=== PATIENT | female | born 1965 | race Caucasian/White ===

== ENCOUNTER → 2016-10-14 | Outpatient (CLI) | payer OTHER ==
[~2016-10-14] MED LIST: LISI-725 PO; PARO1TAB27 PO; PRM625 PO
--- NOTE | 2016-10-14 17:52 | DIAGNOSTIC IMAGING REPORT ---
BRAIN WITHOUT CONTRAST HISTORY: Headaches R51 Cervicogenic [id number] Acute intractable headache TECHNIQUE: Multiplanar multisequence MRI of the brain was performed without the use of contrast. COMPARISON STUDY: 08/24/2015 FINDINGS: There are no areas of restricted diffusion to suggest acute infarction. The midline structures are intact. The paranasal sinuses are clear. The mastoid air cells are clear. The ventricles and sulci are within normal limits for age. There is no mass, hematoma, midline shift. The major vascular flow-voids at the skull base are well maintained. Several very small foci of increased signal right cerebral hemisphere unchanged in the prior exam. No new or interval finding. IMPRESSION: Chronic change. No acute process. No change from the prior exam. The above report was generated using voice recognition software. It may contain grammatical, syntax or spelling errors. Electronically signed by: Sy Berger M.D. 10/14/2016 5:51 PM Dictated Date/Time: 10/14/2016 5:49 PM
== END | disposition home or self-care (01) ==
LOC: C.MRI 16:51
PROVIDERS: ATTEND Psychiatry & Neurology Neurology
DX: R51 Headache (principal)

== ENCOUNTER → 2017-01-10 | Outpatient (CLI) | payer OTHER ==
[~2017-01-10] VITALS: Ht 163.8 cm; Wt 61.0 kg
[2017-01-10 16:10] VITALS: BP 158/80; PULSE 61; Ht 163.8 cm; Wt 61.0 kg
== END | disposition home or self-care (01) ==
LOC: C.NEUR 14:50
PROVIDERS: ATTEND Internal Medicine Pulmonary Disease
DX: R06.83 Snoring (principal); R06.2 Wheezing; R53.83 Other fatigue; R51 Headache; E66.9 Obesity, unspecified

== ENCOUNTER → 2017-01-24 | Outpatient (CLI) | payer OTHER ==
--- NOTE | 2017-01-25 06:09 | PAP/PSG TECHNICIAN REPORT ---
[facility] Application Project Leader Polysomnogram Report Study name: None Report date: 01/25/2017 Study date: 01/24/2017 Referring Physician: Gaurav Diaz M.D. Name: QUIRINO FULLER Interpreting Physician: Gaurav Diaz M.D. Date of : 1965 Application Project Leader: Carmita Pyle RPS. Sex: Female Age: 51 StudyType: PSG Weight: 267 lbs Height: 51 years, Height 5' 4" Neck Circum: 15 inches BMI: 45.83 Medications: Calcium 600 +D, Diclofenac Sodium 50 mg, Lisinopril 30 mg, Lorazepam 0.5 mg, Methocarbamol 500 mg, Oxycodone-Acetaminophen 5-325 mg, Pantoprazole Sodium 40mg, Paroxetine 20 mg, Premarin 0.625 mg, Prochlorperazine Maleate 10 mg, Propranolol 80 mg, Rizatriptan Patient History 51 yr. old female here for a diagnostic sleep study. Patient complains of severe fatigue, snoring, headaches and fragmented sleep. Patients [place] Sleepiness 12/24. Parameters Monitored NPSG: E1-M2, E2-M1, Fp1-M2, Fp2-M1, F3-M2, F4-M2, F4-M1, C3-M2, C4-M2, C4-M1, O1-M2, O2-M2, O2-M1, T3-M2, T4-M1, P3-M2, P4-M1, CHIN1, CHIN2, HR, EKG, Legs, PFLOW, SNOR, FLOW, CFLOW, Tidal Volume, THOR, ABDO, SpO2, PLTH, CPRESS, ETCO2 Wave, ETCO2, pH Sleep Architecture Sleep Stages Time at Lights Off 9:17:14 PM STAGES Time (min.) TST (%) Time at Lights On 5:26:14 AM Wake 30.0 -- Total Recording Time (TRT) 489.50 min. N1 27.5 6 Total Sleep Period (TSP) 479.0 min. N2 320.0 70 Total Sleep Time (TST) 459.0min. N3 32.5 7 Awake Time 30.0 min. REM 79.0 17 Wake after Sleep Onset 20.0 min. Sleep Efficiency (SE) 94 % Sleep Onset Latency (DARLIN) 10.0 min. Number of Stage 1 Shifts None Awakenings 19 Stage Changes 92 Number of REM periods 5 REM 79.0 17 REM Latency 284.0 min. NREM 380.0 83 Body Position Analysis Supine Right Left Side Prone Vertical Total Sleep Time (min.) 298.2 61.2 111.5 172.73 0.0 4.3 Total Sleep Time (%) 62% 13% 24% 38 0% N/A% Total Sleep Time REM (min.) 78.5 0.0 0.5 None 0.0 0.0 Total Sleep Time NREM (min.) 207.8 61.2 111.0 None 0.0 0.0 Intermittent Wake (min.) 11.9 2.2 11.5 None 0.0 4.3 Total Sleep Period (%) 62% None None None None None Arousals Myoclonus (PLM) * Events Count Index Events Count Index Spontaneous 13 2 Events Awake (PLMW) 33 66.0 Respiratory 10 1.4 Events Asleep w/ Arousal (PLMA) 10 1.3 PLM 10 1 Events Asleep w/o Arousal (PLMS) 81 10.6 Snoring 17 2 Total Asleep 91 11.9 Total 50 7 Total 124 15 Respiratory Analysis * CA OA MA CH H RERA Total Count 25 19 0 0 238 0 282 Index 3.3 2.5 0.0 0 31.1 0 36.9 Mean Duration 16.1 13.1 0.0 0.00 18.9 0.0 18.3 Longest Duration 23.2 17.6 0.0 0.00 0.0 0.0 91.0 Respiratory Event Summary Total Supine ~Supine Right Left Prone REM NREM Apneas Count 44 33 11 1 10 N/A 9 35 Index 5.8 7 4 1.0 5.4 N/A 7 6 Hypopneas (4% Desat) Count 238 175 63 9 54 N/A 85 153 Index 31.1 36.7 22 8.8 29.0 N/A 64.6 24.2 Apneas & All Hypopneas Count 282 208 74 10 64 N/A 94 188 Index 36.9 44 26 10 34 N/A 71.4 29.7 Respiratory Events (Commercial Lending Vice President+All Hyp+RERA) Count 282 208 74 10 64 N/A 94 188 Index 36.9 44 26 9.8 34.4 N/A 71.4 29.7 Respiratory Related Arousal Count 10 208 4 0 4 N/A 0 11 Index 1.4 1 1 0 2 N/A 0 2 Snoring Analysis Supine Right Left Prone REM NREM Total Snore duration 54.6 min Snores count 1,761 453 421 N/A 415 2,220 2,635 Snore mean duration 1.2 Sec Snores index 369 444 226 N/A 315.2 350.5 344.4 TST with snoring (%) 11.9% Desaturation Event Summary: Minimum %SpO2 Event Count Mean/Min/Max Duration(sec.) Desaturation Index % Time In Bed > 90 329 15.9 / 5.8 / 52.8 66.3 61.0 86 - 90 60 14.0 / 4.0 / 52.8 19.6 37.6 81 - 85 0 N/A 0.0 1.4 76 - 80 0 N/A 0.0 0.0 71 - 75 0 N/A 0.0 0.0 66 - 70 0 N/A 0.0 0.0 61 - 65 0 N/A 0.0 0.0 56 - 60 0 N/A 0.0 0.0 51 - 55 0 N/A 0.0 0.0 < 50 0 N/A 0.0 0.0 Total REM NREM Awake <50% 0.0 min. 0.0 min. 0.0 min. 0.0 min. 51 - 60% 0.0 min. 0.0 min. 0.0 min. 0.0 min. 61 - 70% 0.0 min. 0.0 min. 0.0 min. 0.0 min. 71 - 80% 0.1 min. 0.1 min. 0.0 min. 0.0 min. 81 - 90% 190.3 min. 41.0 min. 145.6 min. 3.7 min. 91 - 100% 297.9 min. 37.9 min. 234.3 min. 25.7 min. Average 91 90 91 93 Minimum SpO2 80 80 84 86 Desaturation Event Index 42.3 85.8 33.6 40.0 # Desat. Events below 89% 204 86 116 2 Time(%) with Saturation below 89% 8.0 4.4 3.5 0.1 Time(min.) with Saturation below 89% 39.1 21.3 17.0 0.7 Time (mins) REM (mins) NREM (mins) % of TST SpO2 Below 90% 318 111 N207 19.2 SpO2 Below 88% 51 0 0 4 Heart Rate Analysis Min (bpm) Max (bpm) Average (bpm) Awake 53 90 66 NREM 48 95 64 REM 47 87 64 Overall 47 95 64 Supplemental O2 Values Minimum O2 level: None Value Start Time End Time Application Project Leader Comments MS. Fuller slept in the right, left, and supine positions. No cardiac arrhythmia or PLMs noted. No bruxism noted. Snoring was noted and scored as a 4 on a scale of 0 through 5. (0=no snoring, 5=snoring loud enough to be heard through a closed door or down the allan way) MS. Fuller did not wake to use the restroom during the night. MS. Fuller stated, that was a normal night for me. The final report will be interpreted and signed by a sleep physician. The completed physician report will then be placed in the patient medical record. Therapy (cm H2O) 0 TIB (min.) 489.0 TST (min.) 459.0 Sleep Onset (min.) 10.0 REM Onset From Sleep (min.) 284.0 Sleep Efficiency % 94 Wakefulness (%) 6 Wakefulness (min.) 30.0 NREM 1 (%) 6 NREM 1 (min.) 27.5 NREM 2 (%) 70 NREM 2 (min.) 320.0 NREM 3 (%) 7 NREM 3 (min.) 32.5 REM (%) 17 REM (min.) 79.0 # Arousals 50 Arousal Index 7 # Snore 2,635 Snore Index 344.4 AHI 36.9 AHI Supine 44 AHI Non-Supine 26 NREM AHI 29.7 REM AHI 71.4 RDI 36.9 # Obstructive Apnea 19 # Central Apnea 25 # Mixed Apnea 0 # Hypopneas 238 RERAs 0 Total Respiratory Events 290 Time Below SpO2 89% (min.) 38.3 Mean NREM SpO2 (%) 91 Mean REM SpO2 (%) 90 Mean Sleep SpO2 (%) 91 Min NREM SpO2 (%) 84 Min REM SpO2 (%) 80 Position Supine (min.) 298.2 Position Non-supine (min.) 172.7 LM Index Sleep 11.9 LM Index NREM 14.4 LM Index REM 0.0 Mean Heart Rate (bpm) 64 Min Heart Rate (bpm) 47
--- NOTE | 2017-01-26 19:44 | POLYSOMNOGRAPH REPORT ---
CLINICAL DATA: A 51-year-old female with BMI of 45.8, referred by myself and Dr. Bishop with complaints of severe fatigue, snoring, headaches, and fragmented sleep architecture. Her [place] sleepiness score is 12/24. SLEEP ARCHITECTURE: Total sleep period was 479 minutes. Total sleep time was 459 minutes divided between 380 minutes of non-REM sleep and 79 minutes of REM sleep. Sleep onset latency was 10 minutes. REM latency was 284 minutes. Sleep efficiency was 94%. Wake after sleep onset was 20 minutes. Sleep consisted of stage N1 6%, stage N2 70%, stage N3 7%, and non-REM 17%. AROUSAL DATA: Fifty arousals were recorded for an index of 7 per hour. PERIODIC LIMB MOVEMENT DATA: Ninety one limb movements during sleep were noted for an index of 11.9 per hour with arousal index of 1.3 per hour. RESPIRATORY DATA: Severe sleep apnea was documented. The AHI was 37. There were 25 central and 19 obstructive apneic episodes. The longest duration of apnea was 23.2 seconds. There were 238 hypopneic episodes with the mean duration of 18.9 seconds. OXIMETRY DATA: Nocturnal hypoxemia was seen. Oxygen meliza was 80% during REM. The mean saturation was 91%. Time below 88% was 51 minutes. ECHOCARDIOGRAM: Heart rates ranged from 48-95 beats per minute. No arrhythmias were noted. STAFF FORESTER'S COMMENTS: The patient slept in the right, left, and supine positions. Snoring was severe, rated 4 on a scale of 1-5. IMPRESSION: Severe obstructive sleep apnea/hypopnea with nocturnal hypoxemia with an apnea/hypopnea index of 37 and an oxygen meliza of 80%. RECOMMENDATIONS: The patient would benefit from a repeat sleep study with CPAP or use of auto CPAP. [place]
== END | disposition home or self-care (01) ==
LOC: C.NEUR 21:00
PROVIDERS: ATTEND Internal Medicine Pulmonary Disease
DX: G47.33 Obstructive sleep apnea (adult) (pediatric) (principal); R53.83 Other fatigue; R51 Headache; E66.9 Obesity, unspecified; R06.83 Snoring; R06.2 Wheezing; R09.02 Hypoxemia

== ENCOUNTER → 2017-03-07 | Outpatient (CLI) | payer OTHER ==
[~2017-03-07] VITALS: Ht 160 cm; Wt 119.5 kg
[2017-03-07 15:56] VITALS: BP 136/94; PULSE 51; Ht 160 cm; Wt 119.5 kg
== END | disposition home or self-care (01) ==
LOC: C.NEUR 15:07
PROVIDERS: ATTEND Physician Assistant Medical
DX: G47.30 Sleep apnea, unspecified (principal); G47.34 Idiopathic sleep related nonobstructive alveolar hypoventilation; E66.9 Obesity, unspecified; R53.83 Other fatigue; R06.83 Snoring; I10 Essential (primary) hypertension; J45.909 Unspecified asthma, uncomplicated

== ENCOUNTER → 2017-03-19 | Outpatient (CLI) | payer OTHER ==
--- NOTE | 2017-03-20 05:59 | PAP/PSG TECHNICIAN REPORT ---
[facility] Equipment Engineer Polysomnogram Report Study name: None Report date: 03/20/2017 Study date: 03/19/2017 Referring Physician: Gaurav Diaz M.D. Name: QUIRINO ROLAND Interpreting Physician: Gaurav Diaz M.D. Date of : 1965 Equipment Engineer: Indy Meier RPS. Sex: Female Age: 51 Study Type: PSG PAP Weight: 267 lbs 15 in Height: 51 years, Height 5' 4" Neck Circum: BMI: 45.83 Medications: Calcium 600 +D, Diclofenac Sodium 50 mg, Lisinopril 30 mg, Lorazepam 0.5 mg, Methocarbamol 500 mg, Oxycodone-Acetaminophen 5-325 mg, Pantoprazole Sodium 40mg, Paroxetine 20 mg, Premarin 0.625 mg, Prochlorperazine Maleate 10 mg, Propranolol 80 mg, Rizatriptan Patient History 51 yr-old female here for a new CPAP treatment study. She was found to be positive for ANDRAE with an AHI of 36. She chose a Quattro Air full face mask size small from [employer]. The test was started on room air and 4 CMH2O. ETCO2 testing was not utilized during this study. Room 1 She forgot to mention during her first sleep study, that she wakes up a lot due to consistent knee pain. Parameters Monitored NPSG: E1-M2, E2-M1, Fp1-M2, Fp2-M1, F3-M2, F4-M2, F4-M1, C3-M2, C4-M2, C4-M1, O1-M2, O2-M2, O2-M1, T3-M2, T4-M1, P3-M2, P4-M1, CHIN1, CHIN2, HR, EKG, Legs, PFLOW, SNOR, FLOW, CFLOW, Tidal Volume, THOR, ABDO, SpO2, PLTH, CPRESS, ETCO2 Wave, ETCO2, pH Sleep Architecture Sleep Stages Time at Lights Off 10:02:20 PM STAGES Time (min.) TST (%) Time at Lights On 5:33:50 AM Wake 17.0 -- Total Recording Time (TRT) 451.50 min. N1 67.0 15 Total Sleep Period (TSP) 448.0 min. N2 248.0 57 Total Sleep Time (TST) 434.5min. N3 47.5 11 Awake Time 17.0 min. REM 72.0 17 Wake after Sleep Onset 13.5 min. Sleep Efficiency (SE) 96 % Sleep Onset Latency (DARLIN) 3.5 min. Number of Stage 1 Shifts None Awakenings 13 Stage Changes 98 Number of REM periods 2 REM 72.0 17 REM Latency 216.5 min. NREM 362.5 83 Body Position Analysis Supine Right Left Side Prone Vertical Total Sleep Time (min.) 249.8 164.4 28.5 192.91 0.0 0.0 Total Sleep Time (%) 56% 38% 7% 44 0% N/A% Total Sleep Time REM (min.) 18.5 53.5 0.0 None 0.0 0.0 Total Sleep Time NREM (min.) 223.1 110.9 28.5 None 0.0 0.0 Intermittent Wake (min.) 8.3 5.5 3.2 None 0.0 0.0 Total Sleep Period (%) 56% None None None None None Arousals Myoclonus (PLM) * Events Count Index Events Count Index Spontaneous 34 5 Events Awake (PLMW) 22 77.6 Respiratory 21 3.0 Events Asleep w/ Arousal (PLMA) 5 0.7 PLM 5 1 Events Asleep w/o Arousal (PLMS) 117 16.2 Snoring 11 2 Total Asleep 122 16.8 Total 71 10 Total 144 19 Respiratory Analysis * CA OA MA CH H RERA Total Count 19 3 1 0 33 11 56 Index 2.6 0.4 0.1 0 4.6 2 9.3 Mean Duration 12.4 15.6 13.6 0.00 15.9 18.4 15.3 Longest Duration 17.1 20.5 13.6 0.00 13.6 22.5 24.3 Respiratory Event Summary Total Supine ~Supine Right Left Prone REM NREM Apneas Count 23 16 7 5 2 N/A 5 18 Index 3.2 4 2 1.8 4.2 N/A 4 3 Hypopneas (4% Desat) Count 33 30 3 1 2 N/A 0 33 Index 4.6 7.5 1 0.4 4.2 N/A 0.0 5.5 Apneas & All Hypopneas Count 56 46 10 6 4 N/A 5 51 Index 7.7 11 3 2 8 N/A 4.2 8.4 Respiratory Events (Marine Animal Trainer+All Hyp+RERA) Count 56 54 13 9 4 N/A 5 51 Index 9.3 13 4 3.3 8.4 N/A 4.2 10.3 Respiratory Related Arousal Count 21 54 4 4 0 N/A 0 22 Index 3.0 4 1 1 0 N/A 0 4 Snoring Analysis Supine Right Left Prone REM NREM Total Snore duration 10.7 min Snores count 374 160 4 N/A 4 534 538 Snore mean duration 1.2 Sec Snores index 93 58 8 N/A 3.3 88.4 74.3 TST with snoring (%) 2.5% Desaturation Event Summary: Minimum %SpO2 Event Count Mean/Min/Max Duration(sec.) Desaturation Index % Time In Bed > 90 92 18.3 / 5.0 / 59.8 16.4 75.1 86 - 90 9 14.4 / 5.0 / 24.5 4.9 24.8 81 - 85 1 5.8 / 5.8 / 5.8 100.0 0.1 76 - 80 0 N/A 0.0 0.0 71 - 75 0 N/A 0.0 0.0 66 - 70 0 N/A 0.0 0.0 61 - 65 0 N/A 0.0 0.0 56 - 60 0 N/A 0.0 0.0 51 - 55 0 N/A 0.0 0.0 < 50 0 N/A 0.0 0.0 Total REM NREM Awake <50% 0.0 min. 0.0 min. 0.0 min. 0.0 min. 51 - 60% 0.0 min. 0.0 min. 0.0 min. 0.0 min. 61 - 70% 0.0 min. 0.0 min. 0.0 min. 0.0 min. 71 - 80% 0.0 min. 0.0 min. 0.0 min. 0.0 min. 81 - 90% 111.9 min. 6.4 min. 104.6 min. 0.9 min. 91 - 100% 336.8 min. 65.6 min. 257.3 min. 13.9 min. Average 92 92 92 93 Minimum SpO2 84 87 84 85 Desaturation Event Index 12.6 0.8 14.6 28.2 # Desat. Events below 89% 31 1 27 3 Time(%) with Saturation below 89% 1.9 0.0 1.8 0.1 Time(min.) with Saturation below 89% 8.6 0.2 8.1 0.4 Time (mins) REM (mins) NREM (mins) % of TST SpO2 Below 90% 68 1 N67 5.6 SpO2 Below 88% 8 0 0 0 Heart Rate Analysis Min (bpm) Max (bpm) Average (bpm) Awake 47 80 59 NREM 45 79 54 REM 50 74 64 Overall 45 79 55 Supplemental O2 Values Minimum O2 level: None Value Start Time End Time Equipment Engineer Comments Ms. Roland slept in the right, left, and supine positions. No cardiac arrhythmias. Some PLMs were noted. No bruxism noted. CPAP was initiated at +4 CMH2O and up-titrated to a level of +12 CMH2O, Cflex 3. A Quattro Air full face mask size small from [employer] was used during titration She did not wake up to use the restroom during the night. Ms. Roland stated that she slept well. The final report will be interpreted and signed by a sleep physician. The completed physician report will then be placed in the patient medical record. Therapy Event: Therapy (cm H20) 4 5 7 8 9 11 12 Total Time at Pressure (min.) 25.0 73.3 51.0 41.2 119.1 63.6 78.3 TST at Pressure (min.) 21.5 70.8 50.5 40.7 115.6 57.1 78.3 # Periods 1 1 1 1 1 1 1 Sleep Onset (min.) 3.5 0.0 0.0 0.0 0.0 0.0 0.0 REM Onset (min.) N/A N/A N/A N/A 29.5 N/A 59.8 Sleep Efficiency % 86 96 99 98 97 89 100 Wakefulness (%) 14.0 3.4 1.0 1.2 2.9 10.2 0.0 Wakefulness (min.) 3.5 2.5 0.5 0.5 3.5 6.5 0.0 NREM 1 (%) 32.0 6.1 11.8 3.6 12.2 43.2 6.4 NREM 1 (min.) 8.0 4.5 6.0 1.5 14.5 27.5 5.0 NREM 2 (%) 54.0 25.7 87.2 95.1 40.0 46.5 70.0 NREM 2 (min.) 13.5 18.8 44.5 39.2 47.6 29.6 54.8 NREM 3 (%) 0.0 64.8 0.0 0.0 0.0 0.0 0.0 NREM 3 (min.) 0.0 47.5 0.0 0.0 0.0 0.0 0.0 REM (%) 0.0 0.0 0.0 0.0 44.9 0.0 23.6 REM (min.) 0.0 0.0 0.0 0.0 53.5 0.0 18.5 # Arousals 5 4 8 11 20 14 9 Arousal Index 13.9 3.4 9.5 16.2 10.4 14.7 6.9 # Snore 71 81 23 81 158 51 73 Snore Index 197.9 68.6 27.3 119.5 82.0 53.6 55.9 AHI 0.0 5.1 13.1 3.0 8.8 13.7 5.4 AHI Supine N/A 84.9 13.1 3.0 19.2 18.9 5.4 AHI Non-Supine 0.0 1.8 N/A N/A 3.2 8.4 N/A NREM AHI 0.0 5.1 13.1 3.0 14.5 13.7 4.0 REM AHI N/A N/A N/A N/A 2.2 N/A 9.7 RDI 2.8 6.8 13.1 8.9 9.9 14.7 6.1 # Obstructive 0 1 1 1 0 0 0 # Central Ap 0 1 2 0 6 5 5 # Mixed 0 0 1 0 0 0 0 # Hypopneas 0 4 7 1 11 8 2 RERAS 1 2 0 4 2 1 1 Total Respiratory Events 1 8 11 6 19 14 8 Time Below SpO2 89.00% (min.) 0.1 0.8 1.4 0.6 1.2 0.0 4.1 Mean NREM SpO2 (%) 91 91 91 91 92 94 92 Mean REM SpO2 (%) N/A N/A N/A N/A 92 N/A 91 Mean Sleep SpO2 (%) 91 91 91 91 92 94 92 Min NREM SpO2 (%) 88 85 84 86 84 89 88 Min REM SpO2 (%) N/A N/A N/A N/A 87 N/A 89 Position Supine (min.) 0.0 2.8 50.5 40.7 40.7 28.6 78.3 Position Non-supine (min.) 21.5 68.0 0.0 0.0 74.9 28.5 0.0 LM Index Sleep 94.8 11.9 11.9 5.9 15.6 14.7 12.3 LM Index NREM 94.8 11.9 11.9 5.9 9.7 14.7 8.0 LM Index REM N/A N/A N/A N/A 22.4 N/A 25.9 Mean Heart Rate (bpm) 58 58 55 54 57 49 55 Min Heart Rate (bpm) 53 48 48 49 46 45 45 CPAP REPORT Therapy Detail Time / Page # Comment CPAP 4 cm H2O Full Face Mask Flex Pressure Relief Humidifier on 10:00:20 PM / pg. 88 CPAP 5 cm H2O Full Face Mask Flex Pressure Relief Humidifier on 10:27:21 PM / pg. 142 INCREASED FOR AUDIBLE SNORING CPAP 7 cm H2O Full Face Mask Flex Pressure Relief Humidifier on 11:40:40 PM / pg. 288 INCREASED FOR HYPOPNEAS CPAP 8 cm H2O Full Face Mask Flex Pressure Relief Humidifier on 12:31:37 AM / pg. 390 INCREASED FOR RERAS AND HYPOPNEAS CPAP 9 cm H2O Full Face Mask Flex Pressure Relief Humidifier on 1:12:48 AM / pg. 472 INCREASED FOR SNORING AND HYPOPNEAS CPAP 11 cm H2O Full Face Mask Flex Pressure Relief Humidifier on 3:11:56 AM / pg. 711 INCREASED FOR MORE RERAS AND HYPOPNEAS CPAP 12 cm H2O Full Face Mask Flex Pressure Relief Humidifier on 4:15:31 AM / pg. 838 INCREASED FOR MORE RERAS AND HYPOPNEAS
--- NOTE | 2017-03-20 17:07 | POLYSOMNOGRAPH REPORT ---
CLINICAL DATA: A 51-year-old female with BMI of 45.83, referred by myself and Dr. Bishop for CPAP titration study. She had a baseline sleep study which showed with an AHI of 36. She used a Quattro Air facemask full size small from [employer]. SLEEP ARCHITECTURE: Total sleep period was 448 minutes. Total sleep time was 434.5 minutes divided between 362.5 minutes of non-REM sleep and 72 minutes of REM sleep. Sleep latency was 3.5 minutes. REM latency was 216.5 minutes. Sleep efficiency was 96%. Wake after sleep onset was 13.5 minutes. Sleep consisted of stage N1 15%, stage N2 57%, stage N3 11%, and REM 17%. AROUSAL DATA: Seventy one arousals recorded for an index of 10 per hour. PERIODIC LIMB MOVEMENT DATA: Mildly elevated limb movements during sleep were noted. There were 122 limb movements during sleep noted for an index of 16.8 per hour with arousal index of 0.7 per hour. RESPIRATORY DATA: The AHI was 7.7. There were 19 central, 3 obstructive, and 1 mixed apneic episodes. The longest apneic episode was 20.5 seconds. There were 33 hypopneic episodes. The longest duration of hypopnea was 13.6 seconds. OXIMETRY DATA: Nocturnal hypoxemia was seen. Oxygen meliza was 84% during non-REM sleep. Mean saturation was 92%. Time below 88% was 8 minutes. ECHOCARDIOGRAM: Heart rates ranged from 45-79 beats per minute. No arrhythmias were noted. BATHING SUIT MAKER'S COMMENTS AND TREATMENT SUMMARY: The patient slept in the right, left, and supine positions. CPAP was titrated up to 12 cm of water pressure, C-Flex setting #3. At the final pressure setting, she slept for 78 minutes with an AHI of 5. IMPRESSION: Severe obstructive sleep apnea corrected with CPAP at 12 cm water pressure, C-Flex setting of 3, using a Quattro Air full facemask size small from [employer]. RECOMMENDATIONS: The patient should be started on the above noted treatment regimen and seen back in followup within 90 days to document efficacy and compliance. [facility]
== END | disposition home or self-care (01) ==
LOC: C.NEUR 21:00
PROVIDERS: ATTEND Physician Assistant Medical
DX: G47.34 Idiopathic sleep related nonobstructive alveolar hypoventilation (principal); E66.9 Obesity, unspecified; G47.30 Sleep apnea, unspecified

== ENCOUNTER 2022-09-03 22:34 | Inpatient (IN) ==
[2022-09-03] MEDS ORDERED: methylPREDNISolone 125 MG/2 ML VIAL IV STA (22:47)
[2022-09-03] MEDS ORDERED: ALBUT/IPRATROP 3MG/0.5MG NEB 3 ML VIAL INH STA (22:47)
--- NOTE | 2022-09-03 22:58 | Emergency Department Note ---
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 Patient denies fever, chills, abdominal pain, flulike illness, tick bites. She tried her inhaler with no relief of symptoms. No history of blood clots. No leg pain or swelling. No recent travel. She does not smoke. No history of heart failure. Home Medications Medication Instructions Recorded Confirmed Type mometasone-formoterol HFA 100 2 puffs inhalation BID Shortness 01/08/19 09/03/22 Rx mcg-5 mcg/actuation aerosol inhaler Of Breath Or Wheezing #13 grams albuterol sulfate 90 mcg/actuation 2 puffs inhalation Q4H PRN 06/14/19 09/03/22 Rx aerosol inhaler Shortness Of Breath Or Wheezing #6.7 grams hydrochlorothiazide 25 mg tablet 25 mg PO DAILY 03/12/21 09/03/22 History lisinopril 40 mg tablet 40 mg PO QAM #90 tabs 10/18/21 09/03/22 Rx pantoprazole 40 mg tablet,delayed 40 mg PO QAM #90 tabs 10/18/21 09/03/22 Rx release propranolol 80 mg capsule,24 80 mg PO QAM #90 caps 10/18/21 09/03/22 Rx hr,extended release conjugated estrogens 0.625 mg 0.625 mg PO QAM #90 tabs 01/14/22 09/03/22 Rx tablet (Premarin) paroxetine HCl 30 mg tablet 30 mg PO QAM #90 tabs 07/19/22 09/03/22 Rx oxycodone-acetaminophen 5 mg-325 1 - 2 tab PO Q6H PRN severe pain 07/27/22 09/03/22 Rx mg tablet #50 tabs Allergies Allergy/AdvReac Type Severity Reaction Status Date / Time nitrofurantoin AdvReac Severe Nausea and Verified 09/03/22 23:26 [From Macrobid] vomiting bupropion [From Wellbutrin] AdvReac Intermediate high blood Verified 09/03/22 23:26 pressure sulfamethoxazole AdvReac Intermediate HEART RACES Verified 09/03/22 23:26 trimethoprim AdvReac Intermediate HEART RACES Verified 09/03/22 23:26 Past Med/Surg History Medical History Anxiety disorder Asthma COVID Depressive disorder Sage-Danlos disease GERD (gastroesophageal reflux disease) Hypertension Left knee pain Low back pain Lumbar spondylosis Migraine with aura Obesity Osteopenia Polyneuropathy Postmenopausal syndrome Surgical History History of cholecystectomy History of hysterectomy Family History Mother Ovarian cancer Other Breast cancer Coronary heart disease Diabetes Hypertension Stroke Denies family history of Prostate cancer Colorectal cancer Social History Smoking Status: Never smoker Second Hand Exposure: No; Do You Dip or Chew Tobacco: No; Hx Alcohol Use: No Hx Substance Use: No Preferred Language: Armenian Hearing Ability: Normal 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 marital status: Current Living Situation: Spouse current occupational status: employed current occupation: teacher resource Feels Safe at Home: Yes Childhood Exposure to Second-Hand Smoke: Yes Diet: other Diet Comment: Keto caffeine: Yes Dental Care, Regularly: No Physical Activity Frequency: Daily Seatbelt Use: always Sunscreen Use: Yes Review of Systems A total of 10 systems reviewed and were otherwise negative Physical Exam Vital Signs Vital Signs - 24 hr 09/03/22 22:37 09/03/22 22:47 09/04/22 00:35 Temperature 36.6 C Temperature Source Temporal Artery Scan Pulse Rate 61 Pulse Rate from SpO2 Sensor Respiratory Rate 18 Respiratory Effort / Characteristics Non-Labored Spontaneous Non-Labored Respiratory Depth Normal Normal Blood Pressure 200/95 H Blood Pressure Mean 130 Pulse Oximetry 97 94 Oxygen Delivery Method Room Air Room Air Sepsis Recent Fever Within 48 Hours No Sepsis New/Unexplained Change in Mental Status No Sepsis Action Taken by Nursing No Action Required 09/03/22 22:46 09/03/22 22:50 09/03/22 23:00 Temperature Temperature Source Pulse Rate 71 58 L 72 Pulse Rate from SpO2 Sensor 71 58 L Respiratory Rate 17 24 Respiratory Effort / Characteristics Respiratory Depth Blood Pressure Blood Pressure Mean Pulse Oximetry 96 97 Oxygen Delivery Method Sepsis Recent Fever Within 48 Hours Sepsis New/Unexplained Change in Mental Status Sepsis Action Taken by Nursing 09/03/22 23:04 09/03/22 23:04 09/03/22 23:10 Temperature Temperature Source Pulse Rate 60 57 L Pulse Rate from SpO2 Sensor 58 L 58 L Respiratory Rate 19 Respiratory Effort / Characteristics Respiratory Depth Blood Pressure 180/82 H Blood Pressure Mean 114 Pulse Oximetry 94 97 Oxygen Delivery Method Sepsis Recent Fever Within 48 Hours Sepsis New/Unexplained Change in Mental Status Sepsis Action Taken by Nursing 09/03/22 23:20 09/03/22 23:30 09/03/22 23:40 Temperature Temperature Source Pulse Rate 54 L 56 L 66 Pulse Rate from SpO2 Sensor 54 L 56 L 63 Respiratory Rate 18 19 20 Respiratory Effort / Characteristics Respiratory Depth Blood Pressure Blood Pressure Mean Pulse Oximetry 100 99 94 Oxygen Delivery Method Sepsis Recent Fever Within 48 Hours Sepsis New/Unexplained Change in Mental Status Sepsis Action Taken by Nursing 09/03/22 23:50 09/04/22 00:00 09/04/22 00:00 Temperature Temperature Source Pulse Rate 56 L 57 L Pulse Rate from SpO2 Sensor 55 L 57 L Respiratory Rate 23 22 Respiratory Effort / Characteristics Respiratory Depth Blood Pressure 161/78 H Blood Pressure Mean 105 Pulse Oximetry 94 93 Oxygen Delivery Method Sepsis Recent Fever Within 48 Hours Sepsis New/Unexplained Change in Mental Status Sepsis Action Taken by Nursing 09/04/22 00:10 09/04/22 00:20 09/04/22 00:30 Temperature Temperature Source Pulse Rate 56 L 60 Pulse Rate from SpO2 Sensor 55 L 61 Respiratory Rate 23 23 Respiratory Effort / Characteristics Respiratory Depth Blood Pressure 157/79 H Blood Pressure Mean 105 Pulse Oximetry 93 92 Oxygen Delivery Method Sepsis Recent Fever Within 48 Hours Sepsis New/Unexplained Change in Mental Status Sepsis Action Taken by Nursing 09/04/22 00:30 09/04/22 00:40 09/04/22 00:50 Temperature Temperature Source Pulse Rate 57 L 57 L 56 L Pulse Rate from SpO2 Sensor 57 L 57 L 57 L Respiratory Rate 22 20 22 Respiratory Effort / Characteristics Respiratory Depth Blood Pressure Blood Pressure Mean Pulse Oximetry 92 92 93 Oxygen Delivery Method Sepsis Recent Fever Within 48 Hours Sepsis New/Unexplained Change in Mental Status Sepsis Action Taken by Nursing 09/03/22 22:47 09/04/22 02:00 09/04/22 01:20 Temperature Temperature Source Pulse Rate 61 Pulse Rate from SpO2 Sensor 60 Respiratory Rate 22 Respiratory Effort / Characteristics Non-Labored Respiratory Depth Normal Blood Pressure Blood Pressure Mean Pulse Oximetry 94 93 Oxygen Delivery Method Room Air Sepsis Recent Fever Within 48 Hours Sepsis New/Unexplained Change in Mental Status Sepsis Action Taken by Nursing 09/04/22 01:30 09/04/22 01:30 09/04/22 01:40 Temperature Temperature Source Pulse Rate 64 58 L Pulse Rate from SpO2 Sensor 64 57 L Respiratory Rate 24 22 Respiratory Effort / Characteristics Respiratory Depth Blood Pressure 162/77 H Blood Pressure Mean 105 Pulse Oximetry 91 93 Oxygen Delivery Method Sepsis Recent Fever Within 48 Hours Sepsis New/Unexplained Change in Mental Status Sepsis Action Taken by Nursing 09/04/22 01:50 09/04/22 02:00 09/04/22 02:00 Temperature Temperature Source Pulse Rate 71 55 L Pulse Rate from SpO2 Sensor 69 53 L Respiratory Rate 20 18 Respiratory Effort / Characteristics Respiratory Depth Blood Pressure 158/84 H Blood Pressure Mean 108 Pulse Oximetry 97 100 Oxygen Delivery Method Sepsis Recent Fever Within 48 Hours Sepsis New/Unexplained Change in Mental Status Sepsis Action Taken by Nursing 09/04/22 02:10 Temperature Temperature Source Pulse Rate 62 Pulse Rate from SpO2 Sensor 62 Respiratory Rate 23 Respiratory Effort / Characteristics Respiratory Depth Blood Pressure Blood Pressure Mean Pulse Oximetry 94 Oxygen Delivery Method Sepsis Recent Fever Within 48 Hours Sepsis New/Unexplained Change in Mental Status Sepsis Action Taken by Nursing VITALS: Vitals are noted on the nurse's note and reviewed by myself. Vital signs hypertensive GENERAL: Pleasant female, in no acute distress, nondiaphoretic, well-developed well-nourished. SKIN: The skin was without rashes, erythema, or bruising. There is no tenting of the skin. Capillary reflex less than 2 seconds. HEAD: Normocephalic atraumatic. EARS: External auditory canals clear EYES: Pupils equal round and reactive to light and accommodation. Conjunctivae without injection, sclerae without icterus. Extraocular movements intact. NOSE: Patent, turbinates without inflammation or discharge. MOUTH: Mucous membranes moist. Pharynx without erythema or exudate. Uvula midline. Airway patent. Tongue does not deviate. NECK: Supple without nuchal rigidity. No lymphadenopathy. No thyromegaly. Cervical spine is nontender. No JVD. HEART: Regular rate and rhythm LUNGS: Mild diffuse and expiratory wheezes, mild basilar rales. No retractions or accessory muscle use. ABDOMEN: Positive bowel sounds x 4. Normal tympanic percussion. Soft, nontender, without masses or organomegaly. Nur sign negative. No guarding or rebound tenderness. No CVA tenderness MUSCULOSKELETAL: No muscle atrophy, erythema, noted. +1 pitting edema up to the mid tib-fib. NEURO: Patient was alert and oriented to person place and time. Normal se nsation to light and sharp touch. No focal neurological deficits. Course Administered Medications Discontinued Medications Albuterol (Albut/Ipratrop 3mg/0.5mg Neb 3 Ml Vial) 3 ml INH NOW STA Stop: 09/03/22 22:48 Last Admin: 09/03/22 23:05 Dose: 3 ml Documented By: Albuterol (Albut/Ipratrop 3mg/0.5mg Neb 3 Ml Vial) 3 ml NEB NOW STA; Protocol Stop: 09/04/22 01:50 Last Admin: 09/04/22 01:52 Dose: 3 ml Documented By: Furosemide (Furosemide 40 Mg/4 Ml Vial) 40 mg IV ONE ONE Stop: 09/04/22 02:01 Last Admin: 09/04/22 02:12 Dose: 40 mg Documented By: JUAN Ioversol (Ioversol 350 Mg 125ml Prefilled Syringe) 118 ml IV ONCE ONE Stop: 09/04/22 01:23 Last Admin: 09/04/22 01:22 Dose: 118 ml Documented By: DAQUAN Methylprednisolone (Methylprednisolone 125 Mg/2 Ml Vial) 125 mg IV NOW STA Stop: 09/03/22 22:48 Last Admin: 09/03/22 23:05 Dose: 125 mg Documented By: Medical Decision Making Medical Records Attestation: I reviewed the patient's medical records. Home Medications Current Medication List: was personally reviewed by me Laboratory Data Attestation: I reviewed the patient's lab results. 09/03/22 23:11 09/03/22 23:11 Lab Results 09/03/22 09/03/22 09/03/22 Range/Units 23:11 23:11 23:11 WBC 8.46 (4.8-10.8) K/ul RBC 4.27 (4.20-5.40) M/uL Hgb 12.7 (12.0-16.0) g/dl Hct 38.4 (37.0-47.0) % MCV 89.9 (80.0-100.0) fL MCH 29.7 (25.0-34.0) pg MCHC 33.1 (32.0-36.0) g/dL RDW Std Deviation 45.1 (36.4-46.3) fL RDW Coeff of Amalia 13.8 (11.5-14.5) % Plt Count 510 H (130-400) K/uL MPV 10.9 (9.4-12.4) fL Immature Gran % (Auto) 0.4 % Neut % (Auto) 56.7 % Lymph % (Auto) 29.0 % [place] % (Auto) 7.3 % Eos % (Auto) 5.7 % Baso % (Auto) 0.9 % Neut # (Auto) 4.80 (1.40-6.50) K/uL Lymph # (Auto) 2.45 (1.2-3.4) K/uL [place] # (Auto) 0.62 H (0.11-0.59) K/uL Eos # (Auto) 0.48 (0-0.50) K/uL Baso # (Auto) 0.08 (0-0.2) K/uL Immature Gran # (Auto) 0.03 (0.01-0.20) K/uL PT 10.5 (9.0-12.0) Seconds INR 1.0 (0.9-1.1) APTT 26.1 (21.0-31.0) Seconds PTT Ratio 0.9 Sodium 143 (136-145) mmol/L Potassium 3.7 (3.5-5.1) mmol/L Chloride 111 H (98-107) mmol/L Carbon Dioxide 25 (21-32) mmol/L Anion Gap 7 (3-11) BUN 23 (6-23) mg/dl Creatinine 0.76 (0.6-1.2) mg/dl Est Cr Clr Drug Dosing 113.6 ml/min Est GFR ( Amer) 102.3 ml/min Est GFR (Non-Af Amer) 88.3 ml/min BUN/Creatinine Ratio 30.3 H (10-20) Glucose 87 (70-99(Fasting)) mg/dl Calcium 9.0 (8.6-10.3) mg/dl Magnesium 2.0 (1.7-2.4) mg/dl Total Bilirubin 0.4 (0.2-1.0) mg/dl AST 33 (13-39) U/L ALT 46 (7-52) U/L Alkaline Phosphatase 82 (34-104) U/L Troponin I High Sens 6.5 (0-14) pg/ml B-Natriuretic Peptide (0-100) pg/ml Total Protein 6.7 (6.0-8.3) gm/dl Albumin 3.8 (3.4-5.0) gm/dl Globulin 2.9 (2.5-4.0) gm/dl Albumin/Globulin Ratio 1.3 (0.9-2) TSH (0.300-4.500) uIu/ml HCG, Qual (Negative) Urine Color Urine Appearance (Clear) Urine pH (4.5-7.5) Ur Specific [place] (1.000-1.030) Urine Protein (Negative) Urine Glucose (UA) (Negative) Urine Ketones (Negative) Urine Blood (Negative) Urine Nitrite (Negative) Urine Bilirubin (Negative) Urine Urobilinogen (Negative) Ur Leukocyte Esterase (Negative) Adenovirus (PCR) (NotDetected) B. pertussis DNA (PCR) (NotDetected) B.parapertussis DNA PCR (NotDetected) Lyme Disease IgG Ab (Negative) Lyme Disease IgM Ab (Negative) C. pneumoniae DNA (PCR) (NotDetected) Coronavirus OC43 (PCR) (NotDetected) Coronavirus HKU1 (PCR) (NotDetected) Coronavirus 229E (PCR) (NotDetected) SARS-CoV-2 (PCR) (NotDetected) Coronavirus NL63 (PCR) (NotDetected) Human Metapneumovir PCR (NotDetected) Influenza Type A (PCR) (NotDetected) Influenza Type B (PCR) (NotDetected) M. pneumoniae (PCR) (NotDetected) Parainfluenza 1 (PCR) (NotDetected) Parainfluenza 2 (PCR) (NotDetected) Parainfluenza 3 (PCR) (NotDetected) Parainfluenza 4 (PCR) (NotDetected) RSV (PCR) (NotDetected) Entero/Rhino (PCR) (NotDetected) 09/03/22 09/03/22 09/03/22 Range/Units 23:11 23:11 23:11 WBC (4.8-10.8) K/ul RBC (4.20-5.40) M/uL Hgb (12.0-16.0) g/dl Hct (37.0-47.0) % MCV (80.0-100.0) fL MCH (25.0-34.0) pg MCHC (32.0-36.0) g/dL RDW Std Deviation (36.4-46.3) fL RDW Coeff of Amalia (11.5-14.5) % Plt Count (130-400) K/uL MPV (9.4-12.4) fL Immature Gran % (Auto) % Neut % (Auto) % Lymph % (Auto) % [place] % (Auto) % Eos % (Auto) % Baso % (Auto) % Neut # (Auto) (1.40-6.50) K/uL Lymph # (Auto) (1.2-3.4) K/uL [place] # (Auto) (0.11-0.59) K/uL Eos # (Auto) (0-0.50) K/uL Baso # (Auto) (0-0.2) K/uL Immature Gran # (Auto) (0.01-0.20) K/uL PT (9.0-12.0) Seconds INR (0.9-1.1) APTT (21.0-31.0) Seconds PTT Ratio Sodium (136-145) mmol/L Potassium (3.5-5.1) mmol/L Chloride (98-107) mmol/L Carbon Dioxide (21-32) mmol/L Anion Gap (3-11) BUN (6-23) mg/dl Creatinine (0.6-1.2) mg/dl Est Cr Clr Drug Dosing ml/min Est GFR ( Amer) ml/min Est GFR (Non-Af Amer) ml/min BUN/Creatinine Ratio (10-20) Glucose (70-99(Fasting)) mg/dl Calcium (8.6-10.3) mg/dl Magnesium (1.7-2.4) mg/dl Total Bilirubin (0.2-1.0) mg/dl AST (13-39) U/L ALT (7-52) U/L Alkaline Phosphatase (34-104) U/L Troponin I High Sens (0-14) pg/ml B-Natriuretic Peptide 597 H (0-100) pg/ml Total Protein (6.0-8.3) gm/dl Albumin (3.4-5.0) gm/dl Globulin (2.5-4.0) gm/dl Albumin/Globulin Ratio (0.9-2) TSH 1.122 (0.300-4.500) uIu/ml HCG, Qual Negative (Negative) Urine Color Urine Appearance (Clear) Urine pH (4.5-7.5) Ur Specific [place] (1.000-1.030) Urine Protein (Negative) Urine Glucose (UA) (Negative) Urine Ketones (Negative) Urine Blood (Negative) Urine Nitrite (Negative) Urine Bilirubin (Negative) Urine Urobilinogen (Negative) Ur Leukocyte Esterase (Negative) Adenovirus (PCR) (NotDetected) B. pertussis DNA (PCR) (NotDetected) B.parapertussis DNA PCR (NotDetected) Lyme Disease IgG Ab Negative (Negative) Lyme Disease IgM Ab Negative (Negative) C. pneumoniae DNA (PCR) (NotDetected) Coronavirus OC43 (PCR) (NotDetected) Coronavirus HKU1 (PCR) (NotDetected) Coronavirus 229E (PCR) (NotDetected) SARS-CoV-2 (PCR) (NotDetected) Coronavirus NL63 (PCR) (NotDetected) Human Metapneumovir PCR (NotDetected) Influenza Type A (PCR) (NotDetected) Influenza Type B (PCR) (NotDetected) M. pneumoniae (PCR) (NotDetected) Parainfluenza 1 (PCR) (NotDetected) Parainfluenza 2 (PCR) (NotDetected) Parainfluenza 3 (PCR) (NotDetected) Parainfluenza 4 (PCR) (NotDetected) RSV (PCR) (NotDetected) Entero/Rhino (PCR) (NotDetected) 09/03/22 09/04/22 09/04/22 Range/Units 23:13 01:21 02:48 WBC (4.8-10.8) K/ul RBC (4.20-5.40) M/uL Hgb (12.0-16.0) g/dl Hct (37.0-47.0) % MCV (80.0-100.0) fL MCH (25.0-34.0) pg MCHC (32.0-36.0) g/dL RDW Std Deviation (36.4-46.3) fL RDW Coeff of Amalia (11.5-14.5) % Plt Count (130-400) K/uL MPV (9.4-12.4) fL Immature Gran % (Auto) % Neut % (Auto) % Lymph % (Auto) % [place] % (Auto) % Eos % (Auto) % Baso % (Auto) % Neut # (Auto) (1.40-6.50) K/uL Lymph # (Auto) (1.2-3.4) K/uL [place] # (Auto) (0.11-0.59) K/uL Eos # (Auto) (0-0.50) K/uL Baso # (Auto) (0-0.2) K/uL Immature Gran # (Auto) (0.01-0.20) K/uL PT (9.0-12.0) Seconds INR (0.9-1.1) APTT (21.0-31.0) Seconds PTT Ratio Sodium (136-145) mmol/L Potassium (3.5-5.1) mmol/L Chloride (98-107) mmol/L Carbon Dioxide (21-32) mmol/L Anion Gap (3-11) BUN (6-23) mg/dl Creatinine (0.6-1.2) mg/dl Est Cr Clr Drug Dosing ml/min Est GFR ( Amer) ml/min Est GFR (Non-Af Amer) ml/min BUN/Creatinine Ratio (10-20) Glucose (70-99(Fasting)) mg/dl Calcium (8.6-10.3) mg/dl Magnesium (1.7-2.4) mg/dl Total Bilirubin (0.2-1.0) mg/dl AST (13-39) U/L ALT (7-52) U/L Alkaline Phosphatase (34-104) U/L Troponin I High Sens 10.1 (0-14) pg/ml B-Natriuretic Peptide (0-100) pg/ml Total Protein (6.0-8.3) gm/dl Albumin (3.4-5.0) gm/dl Globulin (2.5-4.0) gm/dl Albumin/Globulin Ratio (0.9-2) TSH (0.300-4.500) uIu/ml HCG, Qual (Negative) Urine Color Yellow Urine Appearance Clear (Clear) Urine pH 6.5 (4.5-7.5) Ur Specific [place] 1.020 (1.000-1.030) Urine Protein Negative (Negative) Urine Glucose (UA) Negative (Negative) Urine Ketones Negative (Negative) Urine Blood Negative (Negative) Urine Nitrite Negative (Negative) Urine Bilirubin Negative (Negative) Urine Urobilinogen Negative (Negative) Ur Leukocyte Esterase Negative (Negative) Adenovirus (PCR) Not Detected (NotDetected) B. pertussis DNA (PCR) Not Detected (NotDetected) B.parapertussis DNA PCR Not Detected (NotDetected) Lyme Disease IgG Ab (Negative) Lyme Disease IgM Ab (Negative) C. pneumoniae DNA (PCR) Not Detected (NotDetected) Coronavirus OC43 (PCR) Not Detected (NotDetected) Coronavirus HKU1 (PCR) Not Detected (NotDetected) Coronavirus 229E (PCR) Not Detected (NotDetected) SARS-CoV-2 (PCR) Not Detected (NotDetected) Coronavirus NL63 (PCR) Not Detected (NotDetected) Human Metapneumovir PCR Not Detected (NotDetected) Influenza Type A (PCR) Not Detected (NotDetected) Influenza Type B (PCR) Not Detected (NotDetected) M. pneumoniae (PCR) Not Detected (NotDetected) Parainfluenza 1 (PCR) Not Detected (NotDetected) Parainfluenza 2 (PCR) Not Detected (NotDetected) Parainfluenza 3 (PCR) Not Detected (NotDetected) Parainfluenza 4 (PCR) Not Detected (NotDetected) RSV (PCR) Not Detected (NotDetected) Entero/Rhino (PCR) Not Detected (NotDetected) Imaging Data Attestation: I personally reviewed and interpreted this imaging study as follows: Radiologist's Impression: Chest CTA 09/03/22 22:47 Exam(s): CTA CHEST IV Amt: 118 cc's EXAM: CT Angiography Chest With Intravenous Contrast CLINICAL HISTORY: Reason for exam: Dyspnea. TECHNIQUE: Axial computed tomographic angiography images of the chest with intravenous contrast. CTDI is 40.01 mGy and DLP is 819.02 mGy-cm. Automated exposure control was utilized for the study. A dose lowering technique was utilized adhering to the principles of ALARA. MIP reconstructed images were created and reviewed. COMPARISON: No relevant prior studies available. FINDINGS: Pulmonary arteries: Unremarkable. No CT evidence of pulmonary embolism. Aorta: No acute findings. No thoracic aortic aneurysm. Lungs: Smooth septal thickening with patchy central groundglass opacities most consistent with fluid overload. 0.8 cm pulmonary nodule within the right middle lobe best adjacent to the minor fissure seen on series 3 image 54. Pleural space: Unremarkable. No significant effusion. No pneumothorax. Heart: Mild cardiomegaly. No significant pericardial effusion. No evidence of RV dysfunction. Bones/joints: No acute fracture. No dislocation. Soft tissues: Unremarkable. Lymph nodes: Mild mediastinal lymphadenopathy. Subcarinal-1.4 cm, left interlobar-1.1 cm, right interlobar-1.0 cm.. IMPRESSION: 1. No CT evidence of pulmonary embolism. 2. Smooth septal thickening with patchy central groundglass opacities most consistent with fluid overload. 3. 0.8 cm on the nodule within the right middle lobe. Fleischner Society Guidelines suggest no follow-up is necessary for patients with a low or high risk of malignancy. Electronically signed by: Hugo Cai M.D. 09/04/22 03:25 AM MDM Narrative Prior records/ancillary studies reviewed. Triage Nursing notes reviewed. Additional history obtained from the family. The patient's history was concerning for respiratory difficulties. Differential diagnosis: Etiologies such as infections, reactive airway disease, pneumonia, pneumothorax, COPD, CHF, cardiac ischemia, pulmonary embolism, musculoskeletal, gastrointestinal, as well as others were entertained. Physical examination: As above. ER treatment provided: An order was placed for continuous cardiac monitoring. The monitor shows a rate of 60-100 with a sinus rhythm per my interpretation. Nebulizer, Solu-Medrol was ordered Lasix was ordered Limited Point of Care FAST Ultrasound performed by me: Indication: Dyspnea Findings: Limited cardiac ultrasonography via subxiphoid and parasternal long view showed cardiac wall motion activity, no pericardial fluid, no tamponade. Limited chest ultrasound revealed bilateral lung sliding. Limited abdominal ultrasound revealed no free fluid within Morrisons pouch, splenorenal space, or the pouch of Jorge Alberto. No pericardial effusion present. Impression: Negative FAST exam. On reassessment the patient felt better. Diagnostic interpretation by me: The electrocardiogram was ordered for SOB. ECG: Normal sinus, normal intervals, no acute ST-T wave changes. Low voltage. Rate of 58. Impression sinus bradycardia low voltage independently interpreted by myself I think arrhythmia is unlikely. EKG shows normal sinus rhythm with no interval abnormalities such as QT prolongation or WPW. There are no findings to suggest Brugada syndrome. Cardiac monitoring in the emergency department reveals no tachycardic or bradycardic dysrhythmia. Hypertrophic cardiomyopathy was considered but there are no clear historical elements pointing toward this. EKG is not suggestive. The QRS voltage is not extremely large and there are no suggestive Q waves. The labs Independently Interpreted by myself revealed 2 negative troponins. Elevated BNP Imaging studies: Chest x-ray with mild pulmonary congestion per my independent interpretation CTA negative for PE. Pulmonary congestion present. Lung nodule. Per my independent interpretation. Report was reviewed as above. HEART SCORE: Hx: high/mod/low suspicion: 1 ECG: ST depression/nonspecific changes/normal: 0 Age: Greater than 65/45-64/less than 45: 1 Risk factors: (Hypertension, hyperlipidemia, diabetes, coronary disease, tobacco use, cocaine use): 2 Troponin: Greater than 2 times normal limits/1-2 times normal limits/normal: 0 Total: 4 Consultation: A consultation was placed with the hospitalist. The case was discussed and diagnostics were reviewed. The patient was evaluated in the ER for further treatment. This appears to be consistent with new onset CHF. Patient felt better to be medicated as above. Heart score is low. 2 negative troponins. Nonischemic EKG. CTA negative for PE. Labs and diagnostics were independent turbid by myself. Radiology read the CAT scan. Patient felt better with the Lasix. Medicine was consulted and the case was discussed. She will be admitted to the medical service for further evaluation and work-up for new onset CHF. By the evaluation outlined above emergent etiologies such as pulmonary embolism, reactive airway disease, pneumonia, pneumothorax, musculoskeletal, serious bacterial infections, as well as others were deemed relatively unlikely. The pt informed about the findings as listed above. All questions were answered and pleased with the treatment. The chart was completed utilizing [email or web address] Speech voice recognition software. Grammatical errors, random word insertions, pronoun errors, and incomplete sentences are an occassional consequence of this system due to software limitations, ambient noise, and hardware issues. Any formal questions or concerns about the content, text, or information contained within the body of this dictation should be directly addressed to the physician licensed occupational therapy assistant for clarification. Impression & Plan CHF (congestive heart failure), Chest pain Discharge Plan Visit Data Chief Complaint: Shortness of Breath/Dyspnea Stated Complaint: SHORTNESS OF BREATH, HYPERTENSION ED Provider: José Miguel Allred ED Midlevel Provider: Erendira Fox Discharge Problem: CHF (congestive heart failure), Chest pain Patient Disposition: Admitted As Inpatient Condition: Good Forms Stand Alone Forms: My [employer] Prescriptions Prescriptions: No Action albuterol sulfate 90 mcg/actuation HFA aerosol inhaler 2 puffs inhalation Q4H PRN (Reason: Shortness Of Breath Or Wheezing) Qty: 6.7 0RF lisinopril 40 mg tablet 40 mg PO QAM Qty: 90 3RF propranolol 80 mg capsule,extended release 24 hr 80 mg PO QAM Qty: 90 3RF pantoprazole 40 mg tablet,delayed release (DR/EC) 40 mg PO QAM Qty: 90 3RF Premarin 0.625 mg tablet 0.625 mg PO QAM Qty: 90 3RF paroxetine HCl 30 mg tablet 30 mg PO QAM Qty: 90 3RF oxycodone-acetaminophen 5-325 mg tablet 1 - 2 tab PO Q6H PRN (Reason: severe pain) Qty: 50 0RF hydrochlorothiazide 25 mg tablet 25 mg PO DAILY Rx Instructions: PER PT "THINK I THREW THEM OUT IN TRASH, NEED TO GET A REFILL". mometasone-formoterol 100-5 mcg/actuation HFA aerosol inhaler 2 puffs inhalation BID Qty: 13 11RF Referrals Referrals: Rodrigue Fuller, [Primary Care Provider] -
[2022-09-03 23:31] LABS: Basophils # (auto) 0.08 K/uL (0-0.2); Basophils % (auto) 0.9 %; Eosinophils # (auto) 0.48 K/uL (0-0.50); Eosinophils % (auto) 5.7 %; Hematocrit (blood only) 38.4 % (37.0-47.0); Hemoglobin 12.7 g/dl (12.0-16.0); Immature Granulocytes # (auto) 0.03 K/uL (0.01-0.20); Immature Granulocytes % (auto) 0.4 %; Lymphocytes # (auto) 2.45 K/uL (1.2-3.4); Mean Corpuscular Hemoglobin 29.7 pg (25.0-34.0); Mean Corpuscular Hgb Conc 33.1 g/dL (32.0-36.0); Mean Corpuscular Volume 89.9 fL (80.0-100.0); Mean Platelet Volume 10.9 fL (9.4-12.4); Monocytes # (auto) 0.62 K/uL (0.11-0.59); Monocytes % (auto) 7.3 %; Neutrophils % (auto) 56.7 %; Platelet Count 510 K/uL (130-400); RDW Coefficient of Variation 13.8 % (11.5-14.5); RDW Standard Deviation 45.1 fL (36.4-46.3); Red Blood Count 4.27 M/uL (4.20-5.40); White Blood Count 8.46 K/ul (4.8-10.8)
[2022-09-03 23:44] LABS: Albumin Globulin Ratio 1.3 (0.9-2); Albumin Level 3.8 gm/dl (3.4-5.0); BUN Creatinine Ratio 30.3 (10-20); Bilirubin,Total 0.4 mg/dl (0.2-1.0); Creatinine Clr Calc Pharmacy 113.6 ml/min; Est GFR (African American) 102.3 ml/min; Est GFR (Non-African American) 88.3 ml/min; Globulin 2.9 gm/dl (2.5-4.0); Potassium 3.7 mmol/L (3.5-5.1); Total Protein 6.7 gm/dl (6.0-8.3)
[2022-09-03 23:46] LABS: Pregnancy Test, Serum Negative (Negative)
[2022-09-03 23:50] LABS: Troponin I High Sensitivity 6.5 pg/ml (0-14)
[2022-09-03 23:52] LABS: Partial Thromboplastin Ratio 0.9; Partial Thromboplastin Time 26.1 Seconds (21.0-31.0); Prothrombin Time 10.5 Seconds (9.0-12.0)
[2022-09-04 00:04] LABS: Lyme Ab IgG w/WB Rflx Negative (Negative); Lyme Ab IgM w/WB Rflx Negative (Negative)
[2022-09-04 00:38] LABS: Adenovirus PCR Not Detected (NotDetected); Bordetella parapertussis PCR Not Detected (NotDetected); Bordetella pertussis PCR Not Detected (NotDetected); Chlamydia pneumoniae PCR Not Detected (NotDetected); Coronavirus 229E PCR Not Detected (NotDetected); Coronavirus CoV-2 (COVID19)PCR Not Detected (NotDetected); Coronavirus HKU1 PCR Not Detected (NotDetected); Coronavirus NL63 PCR Not Detected (NotDetected); Coronavirus OC43PCR Not Detected (NotDetected); Human Metapneumovirus PCR Not Detected (NotDetected); Influenza A PCR Not Detected (NotDetected); Influenza B PCR Not Detected (NotDetected); Mycoplasma pneumoniae PCR Not Detected (NotDetected); Parainfluenza Virus 1 PCR Not Detected (NotDetected); Parainfluenza Virus 2 PCR Not Detected (NotDetected); Parainfluenza Virus 3 PCR Not Detected (NotDetected); Parainfluenza Virus 4 PCR Not Detected (NotDetected); Respiratory Syncytial VirusPCR Not Detected (NotDetected); Rhinovirus/Enterovirus PCR Not Detected (NotDetected)
[2022-09-04] MEDS ORDERED: IOVERSOL 350 MG 125mL Prefilled Syringe IV ONE (01:22)
[2022-09-04] MEDS ORDERED: ALBUT/IPRATROP 3MG/0.5MG NEB 3 ML VIAL NEB STA (01:49)
[2022-09-04 01:59] LABS: Troponin I High Sensitivity 10.1 pg/ml (0-14)
[2022-09-04] MEDS ORDERED: FUROSEMIDE 40 MG/4 ML VIAL IV ONE (02:00)
[2022-09-04 02:57] LABS: Appearance Urine Clear (Clear); Bilirubin Urine Negative (Negative); Blood Urine Negative (Negative); Color Urine Yellow; Glucose Urine UA Negative (Negative); Ketones Urine Negative (Negative); Leukocyte Esterase Urine Negative (Negative); Nitrite Urine Negative (Negative); Protein Urine Negative (Negative); Urobilinogen Urine Negative (Negative); pH Urine 6.5 (4.5-7.5)
--- NOTE | 2022-09-04 03:27 | CT Scan Report ---
Exam(s): CTA CHEST IV Amt: 118 cc's EXAM: CT Angiography Chest With Intravenous Contrast CLINICAL HISTORY: Reason for exam: Dyspnea. TECHNIQUE: Axial computed tomographic angiography images of the chest with intravenous contrast. CTDI is 40.01 mGy and DLP is 819.02 mGy-cm. Automated exposure control was utilized for the study. A dose lowering technique was utilized adhering to the principles of ALARA. MIP reconstructed images were created and reviewed. COMPARISON: No relevant prior studies available. FINDINGS: Pulmonary arteries: Unremarkable. No CT evidence of pulmonary embolism. Aorta: No acute findings. No thoracic aortic aneurysm. Lungs: Smooth septal thickening with patchy central groundglass opacities most consistent with fluid overload. 0.8 cm pulmonary nodule within the right middle lobe best adjacent to the minor fissure seen on series 3 image 54. Pleural space: Unremarkable. No significant effusion. No pneumothorax. Heart: Mild cardiomegaly. No significant pericardial effusion. No evidence of RV dysfunction. Bones/joints: No acute fracture. No dislocation. Soft tissues: Unremarkable. Lymph nodes: Mild mediastinal lymphadenopathy. Subcarinal-1.4 cm, left interlobar-1.1 cm, right interlobar-1.0 cm.. IMPRESSION: 1. No CT evidence of pulmonary embolism. 2. Smooth septal thickening with patchy central groundglass opacities most consistent with fluid overload. 3. 0.8 cm on the nodule within the right middle lobe. Fleischner Society Guidelines suggest no follow-up is necessary for patients with a low or high risk of malignancy. Electronically signed by: Hugo Cai M.D. 09/04/22 03:25 AM
--- NOTE | 2022-09-04 04:26 | History & Physical Report ---
Date of Service September 04, 2022 Assessment & Plan (1) CHF (congestive heart failure): Plan: Presented with dyspnea, weight gain, wheezing. Found to have elevated BNP, pulmonary edema on chest imaging, hypertensive urgency. All consistent with acute CHF, likely preserved EF. Patient reports very high sodium diet. Typically her blood pressures are fairly well controlled at home With chest pressure but otherwise no previous symptoms of angina. No recent viral syndrome to suggest postviral cardiomyopathy. Received Lasix 40 Mg IV x1 in the ER with significant improvement and put out 800 mL of urine right away -Admit to PCU for telemetry monitoring -Continue Lasix 20 Mg IV daily for now -Follow BMP and magnesium and replace electrolytes as needed -Check echocardiogram -Daily weights, strict I's and O's, low-sodium diet discussed with patient and recommend 1500 mL/day fluid restriction for now (2) Chest pain: Plan: Chest pressure associated with volume overload from acute CHF and from high blood pressure Troponin negative x2 CT angiogram chest negative for PE or pneumonia ECG without ischemia -Check echocardiogram for wall motion abnormalities -Follow daily ECG -Trend serial troponin again in the morning (3) Hypertension: Plan: Blood pressures quite elevated with hypertensive urgency on arrival with blood pressure systolic 200 and chest tightness and acute CHF Blood pressure is now much improved after receiving IV Lasix -Hold home HCTZ in favor of IV Lasix and would likely need to switch to p.o. 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 Has seen rheumatology in the past Now followed by PCP Continue oxycodone as needed for pain (6) GERD (gastroesophageal reflux disease): Plan: Continue PPI (7) Migraine with aura: Plan: Continue propranolol for prophylaxis (8) Obesity: Plan: BMI 53.3 Discussed need for weight loss and she is motivated to change her diet Gave her the name of Dr. Katherin Khan for obesity management for outpatient follow-up (9) Polyneuropathy: Plan: Start B12 supplement (10) Severe obstructive sleep apnea: Plan: Continue CPAP at 12 cm H2O (11) Vitamin B12 deficiency: Plan: B12 recently low at 167. B12 is not on her home medication list Start B12 1000 mcg p.o. once daily Follow-up with PCP (12) Anxiety disorder: Plan: Continue home Paxil (13) Thrombocytosis: Plan: Platelets elevated at 510 similar to previous. She has had elevated platelets since at least 2019 as per the records at this facility She does not have any signs of iron deficiency anemia. Perhaps this is reactive to ongoing inflammation from her Sage-Danlos? Recommend hematology follow-up for work-up for essential thrombocytosis, however will check iron studies in the morning (14) Pulmonary nodule: Plan: 8 mm nodule seen in right middle lobe No history of smoking Follow-up with repeat chest CT as an outpatient Plan DVT prophylaxis-SCDs, Lovenox SQ Disposition-admit to PCU Full code Her would be her decision-maker if she were unable to make decisions History of Present Illness Chief Complaint: Shortness of breath Primary Care Provider: Rodrigue Fuller, This patient is a 57-year-old female with a history of asthma, Sage-Danlos syndrome with chronic joint pains, GERD, polyneuropathy and chronic pain, HTN, migraines, depression/anxiety, osteopenia, vitamin B12 deficiency, who presents to the ER with chest pressure and shortness of breath. This was not relieved with her usual albuterol inhaler at home. She noted that as her chest pressure increased, her blood pressure got higher and higher and was 200 systolic when she arrived at the ER. She has noticed some weight gain but she often goes up and down fairly easily on her weight depending on her diet. She does admit to eating a very high sodium diet as well. She denies any fevers or chills, no cough or cold symptoms. In the ER, she was hypertensive as noted above, and only became hypoxic later prior to admission when she fell asleep without her CPAP on. She was noted to have pulmonary edema on chest x-ray and CT angiogram of the chest showed volume overload but no PE or pneumonia. Her BNP was elevated. Troponin was negative. ECG showed sinus bradycardia without ischemic changes. She was given albuterol nebs and IV Solu-Medrol initially when her symptoms were thought to be from asthma. After further testing came back, she was given Lasix 40 Mg IV x1 and put out 800 mL of clear yellow urine in a short amount of time afterwards and felt much better. She will be admitted for new onset CHF. Allergies Allergy/AdvReac Type Severity Reaction Status Date / Time nitrofurantoin AdvReac Severe Nausea and Verified 09/03/22 23:26 [From Macrobid] vomiting bupropion [From Wellbutrin] AdvReac Intermediate high blood Verified 09/03/22 23:26 pressure sulfamethoxazole AdvReac Intermediate HEART RACES Verified 09/03/22 23:26 trimethoprim AdvReac Intermediate HEART RACES Verified 09/03/22 23:26 Home Medications Medication Instructions Recorded Confirmed Type mometasone-formoterol HFA 100 2 puffs inhalation BID Shortness 01/08/19 09/03/22 Rx mcg-5 mcg/actuation aerosol inhaler Of Breath Or Wheezing #13 grams albuterol sulfate 90 mcg/actuation 2 puffs inhalation Q4H PRN 06/14/19 09/03/22 Rx aerosol inhaler Shortness Of Breath Or Wheezing #6.7 grams hydrochlorothiazide 25 mg tablet 25 mg PO DAILY 03/12/21 09/03/22 History lisinopril 40 mg tablet 40 mg PO QAM #90 tabs 10/18/21 09/03/22 Rx pantoprazole 40 mg tablet,delayed 40 mg PO QAM #90 tabs 10/18/21 09/03/22 Rx release propranolol 80 mg capsule,24 80 mg PO QAM #90 caps 10/18/21 09/03/22 Rx hr,extended release conjugated estrogens 0.625 mg 0.625 mg PO QAM #90 tabs 01/14/22 09/03/22 Rx tablet (Premarin) paroxetine HCl 30 mg tablet 30 mg PO QAM #90 tabs 07/19/22 09/03/22 Rx oxycodone-acetaminophen 5 mg-325 1 - 2 tab PO Q6H PRN severe pain 07/27/22 09/03/22 Rx mg tablet #50 tabs Past Med/Surg History Medical History (Updated 09/04/22 @ 05:13 by Gladis Majano MD) Anxiety disorder Asthma COVID Depressive disorder Sage-Danlos disease GERD (gastroesophageal reflux disease) Hypertension Left knee pain Low back pain Lumbar spondylosis Migraine with aura Obesity Osteopenia Polyneuropathy Postmenopausal syndrome Pulmonary nodule Thrombocytosis Surgical History History of cholecystectomy History of hysterectomy Family History Mother Ovarian cancer Other Breast cancer Coronary heart disease Diabetes Hypertension Stroke Denies family history of Prostate cancer Colorectal cancer Social History Smoking Status: Never smoker Second Hand Exposure: No; Do You Dip or Chew Tobacco: No; Hx Alcohol Use: No Hx Substance Use: No Preferred Language: Com[place]an Hearing Ability: Normal Continuous Drier Operator Required: No marital status: Current Living Situation: Spouse current occupational status: employed current occupation: elementary classroom teacher Feels Safe at Home: Yes Childhood Exposure to Second-Hand Smoke: Yes Diet: other Diet Comment: Keto caffeine: Yes Dental Care, Regularly: No Physical Activity Frequency: Daily Seatbelt Use: always Sunscreen Use: Yes Review of Systems Review of Systems: All systems reviewed & are unremarkable except as noted in HPI & below Physical Exam Constitutional: WD/WN, vitals as above Eyes: PERRL, conjunctivae normal, anicteric sclerae ENMT: external ear and nose normal, oropharynx normal Neck: trachea midline, no thyromegaly Respiratory: normal respiratory effort, lungs clear to auscultation Cardiovascular: Rate/Rhythm: regular rate and regular rhythm Heart Sounds: no murmur Vessels: no JVD (But difficult to tell due to obese neck) Extremities: + edema (Trace edema bilateral legs) Chest (Breasts): Chest: normal inspection of chest Gastrointestinal (Abdomen): normal bowel sounds, soft, nontender, no hepatosplenomegaly Musculoskeletal: Extremities: extremities normal to inspection; no cyanosis and no clubbing Skin: no rashes, warm and dry Neurologic: moves all extremities and awake; no focal motor deficits Psychiatric: A+Ox3, euthymic affect Results & Data Results & Data Vital Signs (Past 12 Hours) Vital Signs Temp Pulse Resp BP Pulse Ox O2 Del Method 09/04/22 01:39 58 L 09/04/22 02:10 62 23 94 09/04/22 02:00 55 L 18 100 09/04/22 02:00 158/84 H 09/04/22 01:50 71 20 97 09/04/22 01:40 58 L 22 93 09/04/22 01:30 64 24 91 09/04/22 01:30 162/77 H 09/04/22 01:20 61 22 93 09/03/22 22:47 94 Room Air 09/04/22 00:50 56 L 22 93 09/04/22 00:40 57 L 20 92 09/04/22 00:30 57 L 22 92 09/04/22 00:30 157/79 H 09/04/22 00:20 60 23 92 09/04/22 00:10 56 L 23 93 09/04/22 00:00 57 L 22 93 09/04/22 00:00 161/78 H 09/03/22 23:50 56 L 23 94 09/03/22 23:40 66 20 94 09/03/22 23:30 56 L 19 99 09/03/22 23:20 54 L 18 100 09/03/22 23:10 57 L 19 97 09/03/22 23:04 60 94 09/03/22 23:04 180/82 H 09/03/22 23:00 72 24 09/03/22 22:50 58 L 17 97 09/03/22 22:46 71 96 09/03/22 22:47 94 Room Air 09/03/22 22:37 36.6 C 61 18 200/95 H 97 Room Air Laboratory Results CBC,, coags, CMP, magnesium level, BNP, troponin, TSH, hCG, UA, Lyme titer, viral respiratory panel bio fire all reviewed Diagnostic Findings Chest CTA 09/03/22 22:47 Exam(s): CTA CHEST IV Amt: 118 cc's EXAM: CT Angiography Chest With Intravenous Contrast CLINICAL HISTORY: Reason for exam: Dyspnea. TECHNIQUE: Axial computed tomographic angiography images of the chest with intravenous contrast. CTDI is 40.01 mGy and DLP is 819.02 mGy-cm. Automated exposure control was utilized for the study. A dose lowering technique was utilized adhering to the principles of ALARA. MIP reconstructed images were created and reviewed. COMPARISON: No relevant prior studies available. FINDINGS: Pulmonary arteries: Unremarkable. No CT evidence of pulmonary embolism. Aorta: No acute findings. No thoracic aortic aneurysm. Lungs: Smooth septal thickening with patchy central groundglass opacities most consistent with fluid overload. 0.8 cm pulmonary nodule within the right middle lobe best adjacent to the minor fissure seen on series 3 image 54. Pleural space: Unremarkable. No significant effusion. No pneumothorax. Heart: Mild cardiomegaly. No significant pericardial effusion. No evidence of RV dysfunction. Bones/joints: No acute fracture. No dislocation. Soft tissues: Unremarkable. Lymph nodes: Mild mediastinal lymphadenopathy. Subcarinal-1.4 cm, left interlobar-1.1 cm, right interlobar-1.0 cm.. IMPRESSION: 1. No CT evidence of pulmonary embolism. 2. Smooth septal thickening with patchy central groundglass opacities most consistent with fluid overload. 3. 0.8 cm on the nodule within the right middle lobe. Fleischner Society Guidelines suggest no follow-up is necessary for patients with a low or high risk of malignancy. at 2245 with sinus bradycardia, rate 58, low voltage QRS, no ischemic changes Code Status & VTE Plan VTE Prophylaxis Plan VTE Prophylaxis will be ordered: Yes PG Care Time/CCT Total # of Minutes Spent Total Time Spent with Patient: Total time spent is greater than 50% in coordination of care (as documented) at patient's floor/unit and/or counseling patient: Coding Level of Care Code 84159 INT INP/OBS CARE 3/75MIN Diagnoses CHF (congestive heart failure) I50.9 Heart failure chronicity: acute Heart failure type: unspecified Chest pain R07.9 Hypertension I10 Asthma J45.909 Sage-Danlos disease Q79.60 GERD (gastroesophageal reflux disease) K21.9 Migraine with aura G43.109 Obesity E66.9 Polyneuropathy G62.9 Severe obstructive sleep apnea G47.33 Vitamin B12 deficiency E53.8 Anxiety disorder F41.9 Thrombocytosis D75.839 Pulmonary nodule R91.1 (1) CHF (congestive heart failure) Heart failure chronicity: acute Heart failure type: unspecified Qualified Code(s): I50.9 - Heart failure, unspecified
[2022-09-04] MEDS ORDERED: POLYETHYLENE (MIRALAX) 17 GM PACK PO PRN (06:12)
[2022-09-04] MEDS ORDERED: ALBUTEROL HFA 8 GM INHALER INH PRN (06:12)
[2022-09-04] MEDS ORDERED: oxyCODONE/ACETAMINOPHEN 5mg/325mg TAB PO PRN (06:12)
[2022-09-04] MEDS ORDERED: ONDANSETRON INJ 2 MG/ML 2 ML VIAL IV PRN (06:12)
[2022-09-04] MEDS ORDERED: POTASSIUM CHLORIDE CRTAB 20 MEQ TABCR PO STA (06:12)
[2022-09-04] MEDS ORDERED: ACETAMINOPHEN 325 MG TAB PO PRN (06:12)
[2022-09-04 06:44] LABS: Ferritin 95.2 ng/ml (8-388)
--- NOTE | 2022-09-04 07:36 | XRay Report ---
XR chest 1V portable HISTORY: Dyspnea COMPARISON: Chest 02/28/2019. FINDINGS: No pneumothorax. No pleural effusions. The cardiac silhouette is mildly enlarged. There is mild central pulmonary congestion without overt edema. No focal lung consolidations to suggest a pneu monia. No acute fractures. IMPRESSION: Mild cardiomegaly and mild congestive change. ACT 112: Negative or not required by law. Electronically signed by: Kang Jules M.D. 09/04/2022 7:34 AM
[2022-09-04] MEDS: PARoxetine HCL 20 MG TAB PO SCH (08:53)
[2022-09-04] MEDS: FLUTICASONE/VILANTEROL 100/25MCG 14 PUFFS/INHALER INH SCH (08:53)
[2022-09-04] MEDS: lisinopril 40 MG TAB PO SCH (08:55)
[2022-09-04] MEDS: CYANOCOBALAMIN (B-12) 500 MCG TABLET PO SCH (08:55)
[2022-09-04] MEDS: PANTOprazole 40 MG TAB PO SCH (08:56)
[2022-09-04] MEDS: PROPRANOLOL HCL LA 80 MG CAPCR PO SCH (08:56)
[2022-09-04] MEDS: ENOXAPARIN INJ 40 MG/0.4 ML SYR SQ SCH ×2 (08:57→20:26)
[2022-09-04] MEDS ORDERED: FUROSEMIDE INJ 20 MG/2 ML VIAL IV SCH ×2 (09:00)
[2022-09-04] MEDS: POTASSIUM CHLORIDE CRTAB 20 MEQ TABCR PO SCH ×2 (09:59→20:26)
[2022-09-04] MEDS: ESTROGENS, CONJUGATED 0.625 MG TAB PO SCH (10:59)
--- NOTE | 2022-09-04 12:19 | Cardiology Consultation ---
Date of Consultation September 04, 2022 History of Present Illness Reason for Consultation: HFPEF Attending Physician: Eduin Jacobsen MD History of Present Illness She was admitted with progressive chest tightness and shortness of breath. She notes over the week it is gotten worse she woke up yesterday morning not feeling well. They had been eating out most of the week and then after not feeling well yesterday she had a hoagie and chips and that only exacerbated her symptoms. She came to the emergency room she was hypertensive and short of breath. Imaging studies are consistent with heart failure. With diuresis she is feeling better. Her chest discomfort has completely resolved her shortness of breath has resolved at this point she had some mild lower extremity edema in her left leg which is also resolved. She is unaware of any palpitations or fluttering. She notes she has had hypertension probably 20 years. She is unaware of any palpitations or fluttering or feeling her heart racing. She denies any falls or syncopal episodes. Allergies Allergy/AdvReac Type Severity Reaction Status Date / Time nitrofurantoin AdvReac Severe Nausea and Verified 09/03/22 23:26 [From Macrobid] vomiting bupropion [From Wellbutrin] AdvReac Intermediate high blood Verified 09/03/22 23:26 pressure sulfamethoxazole AdvReac Intermediate HEART RACES Verified 09/03/22 23:26 trimethoprim AdvReac Intermediate HEART RACES Verified 09/03/22 23:26 Home Medications Medication Instructions Recorded Confirmed Type mometasone-formoterol HFA 100 2 puffs inhalation BID Shortness 01/08/19 09/03/22 Rx mcg-5 mcg/actuation aerosol inhaler Of Breath Or Wheezing #13 grams albuterol sulfate 90 mcg/actuation 2 puffs inhalation Q4H PRN 06/14/19 09/03/22 Rx aerosol inhaler Shortness Of Breath Or Wheezing #6.7 grams hydrochlorothiazide 25 mg tablet 25 mg PO DAILY 03/12/21 09/03/22 History lisinopril 40 mg tablet 40 mg PO QAM #90 tabs 10/18/21 09/03/22 Rx pantoprazole 40 mg tablet,delayed 40 mg PO QAM #90 tabs 10/18/21 09/03/22 Rx release propranolol 80 mg capsule,24 80 mg PO QAM #90 caps 10/18/21 09/03/22 Rx hr,extended release conjugated estrogens 0.625 mg 0.625 mg PO QAM #90 tabs 01/14/22 09/03/22 Rx tablet (Premarin) paroxetine HCl 30 mg tablet 30 mg PO QAM #90 tabs 07/19/22 09/03/22 Rx oxycodone-acetaminophen 5 mg-325 1 - 2 tab PO Q6H PRN severe pain 07/27/22 09/03/22 Rx mg tablet #50 tabs Patient History Medical History Anxiety disorder Asthma COVID Depressive disorder Sage-Danlos disease GERD (gastroesophageal reflux disease) Hypertension Left knee pain Low back pain Lumbar spondylosis Migraine with aura Obesity Osteopenia Polyneuropathy Postmenopausal syndrome Pulmonary nodule Thrombocytosis Surgical History History of cholecystectomy History of hysterectomy Family History Mother Ovarian cancer Other Breast cancer Coronary heart disease Diabetes Hypertension Stroke Denies family history of Prostate cancer Colorectal cancer Social History Smoking Status: Never smoker Second Hand Exposure: No; Do You Dip or Chew Tobacco: No; Hx Alcohol Use: No Hx Substance Use: No Preferred Language: Japanese Communication Ability: Effective Hearing Ability: Normal Pullboat Engineer Required: No Beliefs That Will Affect Care: None marital status: Current Living Situation: Spouse current occupational status: employed current occupation: allied health teacher Other Information That Helps Us Care for You: No Feels Safe at Home: Yes Safety Concerns: Feels Safe At This Time Childhood Exposure to Second-Hand Smoke: Yes Diet: other Diet Comment: Keto caffeine: Yes Dental Care, Regularly: No Physical Activity Frequency: Daily Seatbelt Use: always Sunscreen Use: Yes Assistive Devices: Cane, CPAP, Glasses and Walker Assistive Devices Comment: will bring in home CPAP machine Results & Data Vital Signs (Past 12 Hours) Vital Signs Temp Pulse Pulse Resp BP BP Pulse Ox 09/04/22 11:28 36.7 C 56 L 18 136/76 94 09/04/22 08:00 09/04/22 07:59 36.7 C 61 18 165/85 H 95 09/04/22 07:46 59 L 09/04/22 06:12 09/04/22 06:12 09/04/22 06:22 36.4 C L 66 20 189/96 H 94 09/04/22 05:54 60 21 145/72 H 98 09/04/22 04:10 96 09/04/22 04:01 97 09/04/22 04:00 138/70 09/04/22 03:59 97 09/04/22 03:50 96 09/04/22 03:40 95 09/04/22 03:30 96 09/04/22 03:30 159/74 H 09/04/22 03:26 93 09/04/22 03:26 163/87 H 09/04/22 03:20 93 09/04/22 03:02 91 09/04/22 03:02 159/75 H 09/04/22 02:40 24 91 09/04/22 02:30 19 91 09/04/22 02:30 159/78 H 09/04/22 02:20 57 L 25 H 91 09/04/22 01:39 58 L 09/04/22 02:10 62 23 94 09/04/22 02:00 55 L 18 100 09/04/22 02:00 158/84 H 09/04/22 01:50 71 20 97 09/04/22 01:40 58 L 22 93 09/04/22 01:30 64 24 91 09/04/22 01:30 162/77 H 09/04/22 01:20 61 22 93 09/04/22 00:50 56 L 22 93 09/04/22 00:40 57 L 20 92 09/04/22 00:30 57 L 22 92 09/04/22 00:30 157/79 H 09/04/22 00:20 60 23 92 Pulse Ox O2 Del Method O2 Del Method O2 Flow Rate 09/04/22 11:28 Room Air 09/04/22 08:00 Room Air 09/04/22 07:59 Room Air 09/04/22 07:46 09/04/22 06:12 Room Air 09/04/22 06:12 94 Room Air 09/04/22 06:22 Room Air 09/04/22 05:54 Nasal Cannula 2 09/04/22 04:10 09/04/22 04:01 09/04/22 04:00 09/04/22 03:59 09/04/22 03:50 09/04/22 03:40 09/04/22 03:30 09/04/22 03:30 09/04/22 03:26 09/04/22 03:26 09/04/22 03:20 Nasal Cannula 2 09/04/22 03:02 09/04/22 03:02 09/04/22 02:40 09/04/22 02:30 09/04/22 02:30 09/04/22 02:20 09/04/22 01:39 09/04/22 02:10 09/04/22 02:00 09/04/22 02:00 09/04/22 01:50 09/04/22 01:40 09/04/22 01:30 09/04/22 01:30 09/04/22 01:20 09/04/22 00:50 09/04/22 00:40 09/04/22 00:30 09/04/22 00:30 09/04/22 00:20 She is awake alert and oriented x3. She has no acute distress HEENT: 2+ carotid upstrokes Lungs: Clear to auscultation bilaterally no rales rhonchi or wheezing Heart: Regular rate and rhythm no appreciable murmurs rubs or gallops Abdomen: Soft obese nontender nondistended Extremities no clubbing cyanosis trace edema of the left leg Psychiatric affect appeared appropriate Echocardiogram was reviewed in detail as well as her imaging IMPRESSIONS: (1) CHF (congestive heart failure): Plan: This is consistent with heart failure with preserved ejection fraction likely on the basis of longstanding hypertension and then salt loading. I would rule out secondary causes for diastolic heart failure including a serum protein electrophoresis, urine protein electrophoresis, ferritin and a TSH. We discussed treatment options. 1a. Continue with lasix until dry 1 the addition of an SGT L2 inhibitor is a recommendation in patients with heart failure preserved ejection fraction 2. Depending on her blood pressure spironolactone could be added to her medical regimen. but if You look at her outpatient blood pressures prior to this they are actually on the lower side. 3. We discussed avoiding salt and reducing it to 2000 mg a day which she seems committed to; daily weights 4. We discussed switching her lisinopril over to Entresto to reduce her risk of heart failure and heart failure admissions 5. We discussed a GLP-1/GIP agonist to help her lose weight which will not only help her blood pressure but her heart failure and reduce the pressure on her joints given her Sage-Danlos syndrome. 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
--- NOTE | 2022-09-04 12:48 | Hospitalist Progress Note ---
Date of Service September 04, 2022 Assessment & Plan (1) CHF (congestive heart failure): Plan: Acute diastolic CHF. Cardiac echo report noted. Continue Lasix diuresis. Ca rdiology consultation pending. (2) Chest pain: Plan: Resolved. No acute EKG changes. Troponin nontrending . Chest CTA negative for PE on admission (3) Hypertension: Plan: Hypertensive urgency present on admission. She takes lisinopril and propranolol at home. We will follow (4) Asthma: Plan: Stable. 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 Supportive care. Continue oxycodone as needed for pain (6) GERD (gastroesophageal reflux disease): Plan: Stable. Continue PPI (7) Migraine with aura: Plan: Stable. Continue propranolol for prophylaxis (8) Obesity: Plan: BMI 53.3. Weight loss recommended (9) Polyneuropathy: Plan: Started B12 supplement (10) Severe obstructive sleep apnea: Plan: Continue CPAP at 12 cm H2O. weight loss recommended (11) Vitamin B12 deficiency: Plan: B12 recently low at 167. B12 is not on her home medication list. Started B12 1000 mcg p.o. once daily. (12) Anxiety disorder: Plan: Stable. Continue home Paxil (13) Thrombocytosis: Plan: Chronic. No intervention necessary at this time. Serial labs. Iron levels noted (14) Pulmonary nodule: Plan: 8 mm nodule seen in right middle lobe. No history of smoking. Follow-up with repeat chest CT as an outpatient Plan Hopeful discharge to home soon Admission and Anticipated Discharge Date Admission Date: September 04, 2022 Subjective Alert and oriented. No distress. She remains on parenteral Lasix diuresis. Cardiac echo reveals normal ejection fraction with normal diastolic function. However, this probably represents pseudonormalization of the E/A ratio consistent with moderately severe diastolic dysfunction which would be expected with her hypertension. We will replace potassium orally before hypokalemia occurs. Chest CTA on admission was negative for PE. Troponin series is negative. She denies chest pain. She remains on lisinopril and propranolol for now. Review of Systems Review of Systems: Constitutional-no fever or chills ENT-no blurred vision, no double vision, no epistaxis, no sore throat Respiratory-no cough, no wheezing. Shortness of breath and elevated blood pressure prompted ER visit Cardiac-no palpitations, no chest pain, no syncope GI-no nausea, vomiting, diarrhea, melena, hematochezia -no urinary retention, no urinary incontinence, no dysuria, no hematuria Musculoskeletal-no joint pain, no muscle tenderness Skin-no bruising, no rashes, no pruritus Neuro-no isolated weakness, no paresthesia, no weakness Psych-no depression, no anxiety Physical Exam Physical Exam: General-alert and oriented x3, no fevers, no chills. Obese HEENT-head atraumatic and normocephalic, pupils equal and reactive to light, extraocular muscles intact Neck-no lymphadenopathy or thyromegaly, trachea midline Chest-bibasilar inspiratory rales. No dullness to percussion. No wheezing. No rhonchii Cardiac-regular rate and rhythm, normal S1 and S2 Abdomen-normal bowel sounds, nontender, no hepatosplenomegaly Extremities-no cyanosis, clubbing, or edema Neuro-cranial nerves II through XII intact, motor and sensory function within normal limits, strength symmetrical , no focal deficits Psych-normal affect, normal mood Results & Data Results & Data Vital Signs (Past 12 Hours) Vital Signs Temp Pulse Pulse Resp BP BP Pulse Ox 09/04/22 11:28 36.7 C 56 L 18 136/76 94 09/04/22 08:00 09/04/22 07:59 36.7 C 61 18 165/85 H 95 09/04/22 07:46 59 L 09/04/22 06:12 09/04/22 06:12 09/04/22 06:22 36.4 C L 66 20 189/96 H 94 09/04/22 05:54 60 21 145/72 H 98 09/04/22 04:10 96 09/04/22 04:01 97 09/04/22 04:00 138/70 09/04/22 03:59 97 09/04/22 03:50 96 09/04/22 03:40 95 09/04/22 03:30 96 09/04/22 03:30 159/74 H 09/04/22 03:26 93 09/04/22 03:26 163/87 H 09/04/22 03:20 93 09/04/22 03:02 91 09/04/22 03:02 159/75 H 09/04/22 02:40 24 91 09/04/22 02:30 19 91 09/04/22 02:30 159/78 H 09/04/22 02:20 57 L 25 H 91 09/04/22 01:39 58 L 09/04/22 02:10 62 23 94 09/04/22 02:00 55 L 18 100 09/04/22 02:00 158/84 H 09/04/22 01:50 71 20 97 09/04/22 01:40 58 L 22 93 09/04/22 01:30 64 24 91 09/04/22 01:30 162/77 H 09/04/22 01:20 61 22 93 09/04/22 00:50 56 L 22 93 Pulse Ox O2 Del Method O2 Del Method O2 Flow Rate 09/04/22 11:28 Room Air 09/04/22 08:00 Room Air 09/04/22 07:59 Room Air 09/04/22 07:46 09/04/22 06:12 Room Air 09/04/22 06:12 94 Room Air 09/04/22 06:22 Room Air 09/04/22 05:54 Nasal Cannula 2 09/04/22 04:10 09/04/22 04:01 09/04/22 04:00 09/04/22 03:59 09/04/22 03:50 09/04/22 03:40 09/04/22 03:30 09/04/22 03:30 09/04/22 03:26 09/04/22 03:26 09/04/22 03:20 Nasal Cannula 2 09/04/22 03:02 09/04/22 03:02 09/04/22 02:40 09/04/22 02:30 09/04/22 02:30 09/04/22 02:20 09/04/22 01:39 09/04/22 02:10 09/04/22 02:00 09/04/22 02:00 09/04/22 01:50 09/04/22 01:40 09/04/22 01:30 09/04/22 01:30 09/04/22 01:20 09/04/22 00:50 Laboratory Results 09/03/22 23:11 09/03/22 23:11 PG Care Time/CCT Total # of Minutes Spent Total Time Spent with Patient: Total time spent is greater than 50% in coordination of care (as documented) at patient's floor/unit and/or counseling patient: Coding Level of Care Code 08182 SUB INP/OBS CARE 3/50MIN Diagnoses CHF (congestive heart failure) I50.9 Heart failure chronicity: acute Heart failure type: unspecified Chest pain R07.9 Hypertension I10 Asthma J45.909 Sage-Danlos disease Q79.60 GERD (gastroesophageal reflux disease) K21.9 Migraine with aura G43.109 Obesity E66.9 Polyneuropathy G62.9 Severe obstructive sleep apnea G47.33 Vitamin B12 deficiency E53.8 Anxiety disorder F41.9 Thrombocytosis D75.839 Pulmonary nodule R91.1 (1) CHF (congestive heart failure) Heart failure chronicity: acute Heart failure type: unspecified Qualified Code(s): I50.9 - Heart failure, unspecified
--- NOTE | 2022-09-04 13:59 | Electrocardiogram Report ---
Test Reason : Blood Pressure : / mmHG Vent. Rate : 058 BPM Atrial Rate : 058 BPM P-R Int : 152 ms QRS Dur : 088 ms QT Int : 414 ms P-R-T Axes : 033 007 039 degrees QTc Int : 406 ms Sinus bradycardia Low voltage QRS Nonspecific ST abnormality When compared with ECG of 31-MAR-2014 14:27, Nonspecific ST abnormality present in the Anterior leads Confirmed by Randolph Boogie ([id number]) on 09/04/2022 1:58:58 PM Referred By: REFERRED SELF Confirmed By:Randolph Boogie
[2022-09-05 07:14] LABS: Basophils # (auto) 0.05 K/uL (0-0.2); Basophils % (auto) 0.4 %; Eosinophils # (auto) 0.09 K/uL (0-0.50); Eosinophils % (auto) 0.7 %; Hemoglobin 13.1 g/dl (12.0-16.0); Immature Granulocytes # (auto) 0.03 K/uL (0.01-0.20); Immature Granulocytes % (auto) 0.2 %; Lymphocytes # (auto) 3.22 K/uL (1.2-3.4); Lymphocytes % (auto) 26.2 %; Mean Corpuscular Hemoglobin 29.9 pg (25.0-34.0); Mean Corpuscular Hgb Conc 34.5 g/dL (32.0-36.0); Mean Corpuscular Volume 86.8 fL (80.0-100.0); Monocytes % (auto) 7.3 %; Neutrophils # (auto) 8.01 K/uL (1.40-6.50); Neutrophils % (auto) 65.2 %; Platelet Count 575 K/uL (130-400); RDW Standard Deviation 43.8 fL (36.4-46.3); Red Blood Count 4.38 M/uL (4.20-5.40)
[2022-09-05 07:27] LABS: BUN Creatinine Ratio 31.8 (10-20); Calcium 9.3 mg/dl (8.6-10.3); Creatinine Clr Calc Pharmacy 100.7 ml/min; Est GFR (African American) 89.4 ml/min; Est GFR (Non-African American) 77.1 ml/min; Potassium 3.6 mmol/L (3.5-5.1)
[2022-09-05 07:34] LABS: Troponin I High Sensitivity 6.6 pg/ml (0-14)
--- NOTE | 2022-09-05 07:56 | XRay Report ---
XR chest 1V portable CLINICAL HISTORY: Congestive heart failure. COMPARISON STUDY: Chest radiograph September 03, 2022. Chest CT September 04, 2022. FINDINGS: There is no pneumothorax or pleural effusion. Cardiomegaly is noted. Pulmonary vascular con gestion persists. No consolidation to suggest pneumonia. IMPRESSION: Cardiomegaly with stable pulmonary vascular congestion. ACT 112: Negative or not required by law. Electronically signed by: Oliverio Bailey M.D. 09/05/2022 7:55 AM
[2022-09-05] MEDS: ESTROGENS, CONJUGATED 0.625 MG TAB PO SCH (08:10)
[2022-09-05] MEDS: CYANOCOBALAMIN (B-12) 500 MCG TABLET PO SCH (08:10)
[2022-09-05] MEDS: PROPRANOLOL HCL LA 80 MG CAPCR PO SCH (08:10)
[2022-09-05] MEDS: POTASSIUM CHLORIDE CRTAB 20 MEQ TABCR PO SCH (08:10)
[2022-09-05] MEDS: PARoxetine HCL 20 MG TAB PO SCH (08:11)
[2022-09-05] MEDS: lisinopril 40 MG TAB PO SCH (08:11)
[2022-09-05] MEDS: PANTOprazole 40 MG TAB PO SCH (08:11)
[2022-09-05] MEDS: FLUTICASONE/VILANTEROL 100/25MCG 14 PUFFS/INHALER INH SCH (08:12)
[2022-09-05] MEDS: ENOXAPARIN INJ 40 MG/0.4 ML SYR SQ SCH (08:12)
[2022-09-05] MEDS ORDERED: FUROSEMIDE 40 MG/4 ML VIAL IV SCH (09:00)
--- NOTE | 2022-09-05 09:07 | Cardiology Progress Note ---
Date of Service September 05, 2022 Assessment & Plan (1) (HFpEF) heart failure with preserved ejection fraction: Plan Impression: 1. Acute HFpEF with initial BNP of 597 2. ANDRAE 3. HTN 4. Chest pain due to fluid overload 5. Obesity 6. Echo with normal LVF, EF 55-60%, no LVH, normal diastolic function 7. Chronic thrombocytosis 8. Chest CTA with mild mediastinal lymphadenopathy Ms. Fuller's heart failure is likely secondary to longstanding hypertension and salt loading however labs were placed to rule out secondary causes - spep, upep, and iron panel. TSH this admission was normal. At this point she is down 2L and no longer sob or experiencing chest pain. I did ask her to walk the halls and make sure she could do so without further sob. We discussed maintaining a low sodium diet with daily weights. We discussed heart failure medications. She should be started on an SGLT2 inhibitor. She appears to have the blood pressure room for spironolactone as well and I would recommend she start with 12.5 mg daily. These can can be started at discharge with a bmp in 7-10 days after. We also discussed weight loss and getting 30 minutes a day of moderate cardiovascular exercise or 3.5 hours per week. She is somewhat limited by joint pain due to Sage Danlos so walking is difficult but she has an exercise bike and could also consider water exercises. Her chest pain has resolved and was secondary to CHF and htn. Trops were negative x2, CTA negative for PE, no ischemic changes on EKG She has been mildly hypertensive in the hospital. Blood pressure medications can be further titrated outpatient. Of note, she has mild mediastinal lymphadenopathy and a pulmonary nodule on CTA and has not had a mammogram since 2019 per outpatient notes - will need to follow up on this with her pcp. She continues to have pulmonary vascular congestion on her CXR but if she feels well walking the halls and ok with hospitalists, she could be discharged with continued oral diuretics for home with close clinic follow up. She is intravascularly dry on lab work today. Admission and Anticipated Discharge Date Admission Date: September 04, 2022 Subjective Ms. Fuller is feeling well this morning. No further sob or chest pain. SR/SB on the monitor. She has diuresed 2 liters. Review of Systems Review of Systems: All systems reviewed & are unremarkable except as noted in HPI & below Physical Exam Constitutional: WD/WN, vitals as above Respiratory: normal respiratory effort, lungs clear to auscultation Cardiovascular: RRR, no murmur, no edema Skin: no rashes, warm and dry Neurologic: moves all extremities and awake Psychiatric: A+Ox3, euthymic affect Results & Data Vital Signs (Past 12 Hours) Vital Signs Temp Pulse Pulse Resp BP BP Pulse Ox 09/05/22 07:42 36.4 C L 56 L 18 139/71 95 09/05/22 04:43 36.5 C 51 L 18 143/78 H 95 09/05/22 02:31 59 L 09/04/22 23:54 36.8 C 54 L 12 126/77 98 O2 Del Method 09/05/22 07:42 Room Air 09/05/22 04:43 Room Air 09/05/22 02:31 09/04/22 23:54 Room Air
--- NOTE | 2022-09-05 15:29 | Discharge Summary ---
Date of Service September 05, 2022 Admission HPI Per Admitting Provider This patient is a 57-year-old female with a history of asthma, Sage-Danlos syndrome with chronic joint pains, GERD, polyneuropathy and chronic pain, HTN, migraines, depression/anxiety, osteopenia, vitamin B12 deficiency, who presents to the ER with chest pressure and shortness of breath. This was not relieved with her usual albuterol inhaler at home. She noted that as her chest pressure increased, her blood pressure got higher and higher and was 200 systolic when she arrived at the ER. She has noticed some weight gain but she often goes up and down fairly easily on her weight depending on her diet. She does admit to eating a very high sodium diet as well. She denies any fevers or chills, no cough or cold symptoms. In the ER, she was hypertensive as noted above, and only became hypoxic later prior to admission when she fell asleep without her CPAP on. She was noted to have pulmonary edema on chest x-ray and CT angiogram of the chest showed volume overload but no PE or pneumonia. Her BNP was elevated. Troponin was negative. ECG showed sinus bradycardia without ischemic changes. She was given albuterol nebs and IV Solu-Medrol initially when her symptoms were thought to be from asthma. After further testing came back, she was given Lasix 40 Mg IV x1 and put out 800 mL of clear yellow urine in a short amount of time afterwards and felt much better. She will be admitted for new onset CHF. Principal Diagnosis acute chf Discharge Exam The patient is awake, alert and oriented 3, well developed and well nourished, normocephalic and atraumatic, lying in bed and in no acute distress. HEENT--PERRL, EOMI, mucous membranes and oropharynx mildly dry Neck--supple. No JVD. No bruits. Thyroid normal, trachea midline, no adenopathy. Heart--normal S1 and S2. No murmurs, rubs or gallops. Lungs--clear bilaterally, no respiratory distress, no accessory muscle use. Abdomen--normal bowel sounds and soft. Mild epigastric and left sided abdominal pain Extremities--no cyanosis or clubbing. No edema. Dermatologic--normal skin turgor, normal color, no abnormal lymph nodes, no rash. Neurologic--cranial nerves II through XII grossly intact. Rheumatologic--normal range of motion. Psychiatric--normal affect. Discharge Data Allergies Allergy/AdvReac Type Severity Reaction Status Date / Time nitrofurantoin AdvReac Severe Nausea and Verified 09/03/22 23:26 [From Macrobid] vomiting bupropion [From Wellbutrin] AdvReac Intermediate high blood Verified 09/03/22 23:26 pressure sulfamethoxazole AdvReac Intermediate HEART RACES Verified 09/03/22 23:26 trimethoprim AdvReac Intermediate HEART RACES Verified 09/03/22 23:26 Consultations 09/04/22 03:32 ED Decision to Admit Stat 09/04/22 11:21 Consult Cardiology Routine Ordered Studies 09/03/22 22:47 CT angio chest PE protocol Stat Hospital Course (1) CHF (congestive heart failure): Acute diastolic CHF. Cardiac echo report noted. Continue Lasix diuresis. Cardiology evaluated Suggest outpatient follow up with cardiology discharge on PO Lasix (2) Chest pain: Resolved. No acute EKG changes. Troponin nontrending . Chest CTA negative for PE on admission (3) Hypertension: Hypertensive urgency present on admission. She takes lisinopril and propranolol at home. We will follow (4) Asthma: Stable. 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 Supportive care. Continue oxycodone as needed for pain (6) GERD (gastroesophageal reflux disease): Stable. Continue PPI (7) Migraine with aura: Stable. Continue propranolol for prophylaxis (8) Obesity: BMI 53.3. Weight loss recommended (9) Polyneuropathy: Started B12 supplement (10) Severe obstructive sleep apnea: Continue CPAP at 12 cm H2O. weight loss recommended (11) Vitamin B12 deficiency: B12 recently low at 167. B12 is not on her home medication list. Started B12 1000 mcg p.o. once daily. (12) Anxiety disorder: Stable. Continue home Paxil (13) Thrombocytosis: Chronic. No intervention necessary at this time. Serial labs. Iron levels noted (14) Pulmonary nodule: 8 mm nodule seen in right middle lobe. No history of smoking. Follow-up with repeat chest CT as an outpatient Plan Hopeful discharge to home soon Total Time Total Time Spent Total Time Spent (In Minutes): 35 Discharge Plan Discharge Items Patient Disposition: Home - Self-Care Reason For Visit: CHF Discharge Diagnosis: acute CHF Condition on Discharge: Good Activity: Resume your previous activity Non-emergency contact: Primary Care Provider and Regulatory Affairs Analyst Call non-emergency contact if: you have any medication questions Follow-up/Referrals: Rodrigue Fuller DO [Primary Care Provider] - 09/14/22 1:00 pm Diet: Heart Healthy Addtl Attending Provider Instructions: please make appointment to follow up with cardiology as soon as possible Pending Studies at Discharge: No Stand-Alone Forms: My [facility] [employer] [place] [employer], Smoking Cessation Medications and DC Order Prescriptions: New furosemide [Lasix] 40 mg tablet 40 mg PO DAILY Qty: 30 0RF potassium chloride 10 mEq capsule, extended release 10 meq PO DAILY Qty: 30 0RF Continued albuterol sulfate 90 mcg/actuation HFA aerosol inhaler 2 puffs inhalation Q4H PRN (Reason: Shortness Of Breath Or Wheezing) Qty: 6.7 0RF lisinopril 40 mg tablet 40 mg PO QAM Qty: 90 3RF propranolol 80 mg capsule,extended release 24 hr 80 mg PO QAM Qty: 90 3RF pantoprazole 40 mg tablet,delayed release (DR/EC) 40 mg PO QAM Qty: 90 3RF Premarin 0.625 mg tablet 0.625 mg PO QAM Qty: 90 3RF paroxetine HCl 30 mg tablet 30 mg PO QAM Qty: 90 3RF oxycodone-acetaminophen 5-325 mg tablet 1 - 2 tab PO Q6H PRN (Reason: severe pain) Qty: 50 0RF hydrochlorothiazide 25 mg tablet 25 mg PO DAILY Rx Instructions: PER PT "THINK I THREW THEM OUT IN TRASH, NEED TO GET A REFILL". mometasone-formoterol 100-5 mcg/actuation HFA aerosol inhaler 2 puffs inhalation BID Qty: 13 11RF Discharge Orders: Discharge Order (Routine); Ordered 09/05/22 Ordered By: Yaniv Valdez Admission Data Admit Date/Time: 09/04/22 04:35 Attending Provider: Yaniv Valdez Admit Provider: Gladis Majano Primary Care Provider: Rodrigue Fuller Other Providers: Gladis Majano ; Jonatan Michelle ; [place] Dsouza ; Ford Adams ; Marc Peres ; Ruben Brannon ; Gabino Lamb Jr ; Leo Prather ; Senait Oviedo ; Erica Phillip ; Fidencio Cuadra ; Neel Almaraz ; Eduin Saldivar ; Yolie Sneed ; Laxmi Diaz ; Caleb Saucedo ; Austin Gil ; Marc Byrd V. Other Interventions: Discharge Summary Assessment (RN) Last Done: 09/05/22 11:36 Coding Level of Care Code 41566 INP/OBS DISCH >30 MIN Diagnoses CHF (congestive heart failure) I50.9 Heart failure chronicity: acute Heart failure type: unspecified Chest pain R07.9 Hypertension I10 Asthma J45.909 Sage-Danlos disease Q79.60 GERD (gastroesophageal reflux disease) K21.9 Migraine with aura G43.109 Obesity E66.9 Polyneuropathy G62.9 Severe obstructive sleep apnea G47.33 Vitamin B12 deficiency E53.8 Anxiety disorder F41.9 Thrombocytosis D75.839 Pulmonary nodule R91.1 Time Spent (min) 35
--- NOTE | 2022-09-07 05:37 | Electrocardiogram Report ---
Test Reason : Blood Pressure : / mmHG Vent. Rate : 051 BPM Atrial Rate : 051 BPM P-R Int : 150 ms QRS Dur : 082 ms QT Int : 468 ms P-R-T Axes : 006 003 027 degrees QTc Int : 431 ms Sinus bradycardia with sinus arrhythmia Otherwise normal ECG When compared with ECG of 03-SEP-2022 22:45, No significant change Confirmed by Leo Prather ([id number]) on 09/07/2022 5:36:35 AM Referred By: REFERRED SELF Confirmed By:Leo Prather
== END 2022-09-05 13:27 | disposition home or self-care (01) | DRG 291 ==
LOC: ED 22:34 → SUATTDRO 09-04 04:35 → 2E 09-04 04:35